=== PATIENT | male | born 1965 ===

== ENCOUNTER 2018-06-13 19:21 | Inpatient (IN) ==
[2018-06-13] MEDS ORDERED: ONDANSETRON 4 MG/2 ML VIAL IV PRN (22:16)
[2018-06-13] MEDS ORDERED: DEXTROSE 50% 25 GM/50 ML VIAL IV PRN (22:16)
[2018-06-13] MEDS ORDERED: GLUCAGON 1 MG VIAL IM PRN (22:16)
[2018-06-13] MEDS ORDERED: MORPHINE 4 MG/1 ML VIAL IV PRN (22:16)
[2018-06-13] MEDS ORDERED: ACETAMINOPHEN 325 MG TABLET PO PRN (22:16)
[2018-06-13] MEDS ORDERED: LORazepam 2 MG/1 ML VIAL IV PRN (22:32)
[2018-06-13] MEDS ORDERED: hydrALAZINE 20 MG/1 ML VIAL IV PRN (22:51)
[2018-06-13] MEDS ORDERED: THIAMINE INJ 100 MG, FOLIC ACID INJ 1 MG, MULTIVITAMIN INJ 10 ML in SODIUM CHLORIDE 0.9... IV ONE (23:00)
[2018-06-13] MEDS: CEFTAROLINE 600 MG in SODIUM CHLORIDE 0.9% 100 ML IV SCH (23:27)
[2018-06-14] MEDS: INSULIN REGULAR 100 UNIT/ML SUBCUT SCH ×5 (00:39→23:41)
[2018-06-14 07:22] LABS: Basophils % 0.5 % (0.0-0.8); Eosinophils # 0.1 10*3/uL (0.0-0.87); Eosinophils % 1.6 % (0.00-10.9); Hematocrit 33.7 VOL% (42.0-52.0); Hemoglobin 11.9 GM/DL (14.0-18.0); Immature Granulocytes % 0.5 %; Immature Granulocytes Absolute 0.04 #; Lymphocytes % 13.8 % (21.2-54.2); Mean Corpuscular HGB Conc 35.3 GM/DL (32-36); Mean Corpuscular Hemoglobin 31 PG (27-34); Mean Corpuscular Volume 86.9 FL (87-102); Mean Platelet Volume 9.3 FL (9.6-12.0); Monocytes # 1.3 10*3/uL (0.11-0.8); Monocytes % 17.1 % (1.7-12.7); Neutrophils # 4.9 10*3/uL (1.4-7.4); Neutrophils % 66.5 % (38.7-73.9); Platelet Count 215 T/CUMM (130-400); Red Blood Count 3.88 MC/CUMM (3.8-5.5); Red Cell Distribution Width 12.5 % (9.3-17.3); White Blood Count 7.4 T/CUMM (4-12)
[2018-06-14 07:29] LABS: PT Patient Result 10.5 SECS; Partial Thromboplastin Time 30.1 SECS (0-40)
[2018-06-14 07:45] LABS: Band Neutrophils 3 % (0-10); Eosinophils 2 % (0-10); Lymphocytes 13 % (20-55); Platelet Estimate Normal; Segmented Neutrophils 72 % (50-85); Total Cells Counted 100
[2018-06-14 07:54] LABS: Albumin 2.5 G/DL (3.4-5.0); Bilirubin,Total 0.7 MG/DL (0.2-1.0); Calcium 8.9 MG/DL (8.5-10.1); Osmolality,Calculated 281.4 MOS/KG (273-304); Potassium 3.5 MMOL/L (3.5-5.1); Total Protein 7.7 G/DL (6.4-8.3)
[2018-06-14] MEDS ORDERED: LIDOCAINE 1% 20 ML VIAL ONE (10:11)
[2018-06-14] MEDS: LACTATED RINGERS 1,000 ML IV SCH (10:40)
[2018-06-14] MEDS: CEFTAROLINE 600 MG in SODIUM CHLORIDE 0.9% 100 ML IV SCH ×2 (11:55→23:28)
[2018-06-14] MEDS: SODIUM CHLORIDE 0.9% 1,000 ML IV SCH (11:55)
[2018-06-14] MEDS ORDERED: ONDANSETRON 4 MG/2 ML VIAL ONE (13:00)
[2018-06-14] MEDS ORDERED: MIDAZOLAM 2 MG/2 ML VIAL ONE (13:00)
[2018-06-14] MEDS ORDERED: fentaNYL 100 MCG/2 ML VIAL ONE (13:00)
[2018-06-14] MEDS ORDERED: PROPOFOL 200 MG/20 ML VIAL IV ONE (13:01)
[2018-06-15] MEDS: SODIUM CHLORIDE 0.9% 1,000 ML IV SCH ×2 (02:54→19:00)
[2018-06-15] MEDS: INSULIN REGULAR 100 UNIT/ML SUBCUT SCH ×4 (06:31→23:55)
[2018-06-15 06:37] LABS: Basophils # 0.1 10*3/uL (0.0-0.2); Basophils % 0.7 % (0.0-0.8); Eosinophils # 0.2 10*3/uL (0.0-0.87); Eosinophils % 2.7 % (0.00-10.9); Hematocrit 32.9 VOL% (42.0-52.0); Hemoglobin 11.7 GM/DL (14.0-18.0); Immature Granulocytes % 0.5 %; Immature Granulocytes Absolute 0.04 #; Lymphocytes # 1.5 10*3/uL (1.4-4.0); Lymphocytes % 19.6 % (21.2-54.2); Mean Corpuscular HGB Conc 35.6 GM/DL (32-36); Mean Corpuscular Hemoglobin 32 PG (27-34); Mean Corpuscular Volume 88.4 FL (87-102); Mean Platelet Volume 9.3 FL (9.6-12.0); Monocytes # 1.2 10*3/uL (0.11-0.8); Monocytes % 15.6 % (1.7-12.7); Neutrophils # 4.7 10*3/uL (1.4-7.4); Neutrophils % 60.9 % (38.7-73.9); Platelet Count 211 T/CUMM (130-400); Red Blood Count 3.72 MC/CUMM (3.8-5.5); Red Cell Distribution Width 12.3 % (9.3-17.3); White Blood Count 7.7 T/CUMM (4-12)
[2018-06-15 06:58] LABS: Band Neutrophils 1 % (0-10); Eosinophils 2 % (0-10); Hypochromasia Slight; Lymphocytes 16 % (20-55); Segmented Neutrophils 70 % (50-85); Total Cells Counted 100
[2018-06-15 06:59] LABS: Microcytosis Slight; Platelet Estimate Normal
[2018-06-15 07:11] LABS: Calcium 8.5 MG/DL (8.5-10.1); Osmolality,Calculated 276.5 MOS/KG (273-304); Potassium 3.6 MMOL/L (3.5-5.1)
[2018-06-15] MEDS: CEFTAROLINE 600 MG in SODIUM CHLORIDE 0.9% 100 ML IV SCH ×2 (11:48→23:51)
[2018-06-15] MEDS: LISINOPRIL 5 MG TABLET PO SCH (12:06)
[2018-06-15] MEDS: LACTATED RINGERS 1,000 ML IV SCH (12:09)
[2018-06-16] MEDS: INSULIN REGULAR 100 UNIT/ML SUBCUT SCH ×3 (05:56→18:20)
[2018-06-16 06:31] LABS: Basophils % 0.6 % (0.0-0.8); Eosinophils # 0.2 10*3/uL (0.0-0.87); Eosinophils % 3.6 % (0.00-10.9); Immature Granulocytes % 0.6 %; Immature Granulocytes Absolute 0.04 #; Lymphocytes # 1.4 10*3/uL (1.4-4.0); Lymphocytes % 21.5 % (21.2-54.2); Mean Corpuscular HGB Conc 35.3 GM/DL (32-36); Mean Corpuscular Hemoglobin 31 PG (27-34); Mean Corpuscular Volume 87.9 FL (87-102); Monocytes # 0.9 10*3/uL (0.11-0.8); Monocytes % 13.5 % (1.7-12.7); Neutrophils # 3.8 10*3/uL (1.4-7.4); Neutrophils % 60.2 % (38.7-73.9); Platelet Count 244 T/CUMM (130-400); Red Blood Count 3.87 MC/CUMM (3.8-5.5); Red Cell Distribution Width 12.3 % (9.3-17.3); White Blood Count 6.4 T/CUMM (4-12)
[2018-06-16 06:44] LABS: Osmolality,Calculated 278.5 MOS/KG (273-304); Potassium 3.6 MMOL/L (3.5-5.1)
[2018-06-16] MEDS ORDERED: SIMVASTATIN 20 MG TABLET PO SCH (09:00)
[2018-06-16] MEDS ORDERED: ASPIRIN EC 81 MG TABLET PO SCH (09:00)
[2018-06-16] MEDS: LISINOPRIL 5 MG TABLET PO SCH (09:14)
[2018-06-16] MEDS: SODIUM CHLORIDE 0.9% 1,000 ML IV SCH (09:14)
[2018-06-16] MEDS: CEFTAROLINE 600 MG in SODIUM CHLORIDE 0.9% 100 ML IV SCH (14:08)
[2018-06-16 20:25] VITALS: BP 173/83
== END 2018-06-16 20:40 | disposition home or self-care (01) | DRG 623 ==
LOC: SUATTDRO 21:10 → N.5E 21:10
PROVIDERS: ADMIT Internal Medicine; ATTEND Internal Medicine

== ENCOUNTER 2018-07-18 15:41 | Inpatient (IN) ==
[2018-07-18] MEDS ORDERED: GLUCAGON 1 MG VIAL IM PRN (19:48)
[2018-07-18] MEDS ORDERED: DEXTROSE 50% 25 GM/50 ML VIAL IV PRN (19:48)
[2018-07-18] MEDS ORDERED: ONDANSETRON 4 MG/2 ML VIAL IV PRN (19:48)
[2018-07-18 20:33] LABS: Basophils % 0.3 % (0.0-0.8); Eosinophils # 0.1 10*3/uL (0.0-0.87); Eosinophils % 0.5 % (0.00-10.9); Hematocrit 31.3 VOL% (42.0-52.0); Hemoglobin 11.4 GM/DL (14.0-18.0); Immature Granulocytes % 0.8 %; Immature Granulocytes Absolute 0.09 #; Lymphocytes # 1.1 10*3/uL (1.4-4.0); Mean Corpuscular HGB Conc 36.4 GM/DL (32-36); Mean Corpuscular Hemoglobin 31 PG (27-34); Mean Corpuscular Volume 84.6 FL (87-102); Mean Platelet Volume 8.5 FL (9.6-12.0); Monocytes # 1.2 10*3/uL (0.11-0.8); Monocytes % 10.4 % (1.7-12.7); Neutrophils # 8.7 10*3/uL (1.4-7.4); Platelet Count 251 T/CUMM (130-400); Red Cell Distribution Width 12.3 % (9.3-17.3); White Blood Count 11.1 T/CUMM (4-12)
[2018-07-18 20:52] LABS: Calcium 8.4 MG/DL (8.5-10.1); Osmolality,Calculated 265.9 MOS/KG (273-304); Potassium 4.3 MMOL/L (3.5-5.1)
[2018-07-18] MEDS: SODIUM CHLORIDE 0.9% 1,000 ML IV SCH (21:32)
[2018-07-18] MEDS: INSULIN LISPRO 100 UNIT/ML SUBCUT SCH (21:34)
[2018-07-18] MEDS: ENOXAPARIN 40 MG/0.4 ML SYRINGE SUBCUT SCH (21:34)
[2018-07-19 01:42] LABS: Calcium 8.1 MG/DL (8.5-10.1)
[2018-07-19 01:43] LABS: Osmolality,Calculated 268.1 MOS/KG (273-304); Potassium 4.1 MMOL/L (3.5-5.1)
[2018-07-19 02:17] LABS: Apearance,Urine Slightly Hazy (Clear); Bacteria,Urine Occasional /HPF (Few); Bilirubin,Urine Negative (Negative); Blood, Urine Moderate mg/dL (Negative); Glucose,Urine (UA) >=500 mg/dL (Negative); Granular Casts,Urine 15 /LPF (0-1); Hyaline Casts,Urine 5 /LPF (0-3); Ketones,Urine 5 mg/dL (Negative); Mucus,Urine Occasional /LPF (Occasional); Nitrite,Urine Negative (Negative); Protein,Urine >=500 MG/DL; RBC,Urine 3 /HPF (0-4); Squamous Epithelial Cell,Urine Occasional /HPF (0-10); Urine Color Yellow (Yellow); Urine Specific Gravity 1.009 (1.001-1.035)
[2018-07-19] MEDS: SODIUM CHLORIDE 0.9% 1,000 ML IV SCH ×2 (05:18→16:36)
[2018-07-19] MEDS: INSULIN LISPRO 100 UNIT/ML SUBCUT SCH ×4 (08:16→21:07)
[2018-07-19] MEDS ORDERED: LIDOCAINE 1% 20 ML VIAL ONE (08:45)
[2018-07-19] MEDS ORDERED: SEVOFLURANE 1 UNIT/15 MINUTE INH ONE (10:14)
[2018-07-19] MEDS ORDERED: PROPOFOL 200 MG/20 ML VIAL IV ONE (10:14)
[2018-07-19] MEDS ORDERED: MIDAZOLAM 2 MG/2 ML VIAL ONE (10:14)
[2018-07-19] MEDS ORDERED: fentaNYL 100 MCG/2 ML VIAL ONE (10:15)
[2018-07-19] MEDS ORDERED: PHENYLEPHRINE 1 MG/10 ML SYRINGE IV ONE (10:15)
[2018-07-19] MEDS: LACTATED RINGERS 1,000 ML IV SCH (11:12)
[2018-07-19] MEDS: ACETAMINOPHEN 325 MG TABLET PO PRN ×2 (12:52→18:26)
[2018-07-19] MEDS: AMPICILLIN/SULBACTAM 3,000 MG in SODIUM CHLORIDE 0.9% 100 ML IV SCH ×2 (15:06→21:59)
[2018-07-19] MEDS: VANCOMYCIN INJ 1,000 MG in SODIUM CHLORIDE 0.9% 250 ML IV SCH (20:40)
[2018-07-19] MEDS: ENOXAPARIN 40 MG/0.4 ML SYRINGE SUBCUT SCH (20:41)
[2018-07-20] MEDS: SODIUM CHLORIDE 0.9% 1,000 ML IV SCH (02:30)
[2018-07-20] MEDS: AMPICILLIN/SULBACTAM 3,000 MG in SODIUM CHLORIDE 0.9% 100 ML IV SCH ×4 (02:42→21:12)
[2018-07-20 06:24] LABS: Calcium 7.7 MG/DL (8.5-10.1); Potassium 3.4 MMOL/L (3.5-5.1)
[2018-07-20] MEDS: INSULIN LISPRO 100 UNIT/ML SUBCUT SCH ×4 (08:06→21:11)
[2018-07-20] MEDS: VANCOMYCIN INJ 1,000 MG in SODIUM CHLORIDE 0.9% 250 ML IV SCH ×2 (08:07→19:41)
[2018-07-20] MEDS: ATORVASTATIN 20 MG TABLET PO SCH (08:55)
[2018-07-20] MEDS: POTASSIUM CHLORIDE 20 MEQ TABLET PO PRN ×3 (08:55→14:12)
[2018-07-20] MEDS: amLODIPine 5 MG TABLET PO SCH (08:55)
[2018-07-20] MEDS ORDERED: chlordiazePOXIDE 10 MG CAPSULE PO PRN (11:58)
[2018-07-20] MEDS: THIAMINE INJ 100 MG, FOLIC ACID INJ 1 MG, MULTIVITAMIN INJ 10 ML in SODIUM CHLORIDE 0.9... IV SCH (13:00)
[2018-07-20] MEDS: LACTATED RINGERS 1,000 ML IV SCH (15:00)
[2018-07-20] MEDS: ENOXAPARIN 40 MG/0.4 ML SYRINGE SUBCUT SCH (21:12)
[2018-07-20] MEDS: ACETAMINOPHEN 325 MG TABLET PO PRN (23:05)
[2018-07-21] MEDS: SODIUM CHLORIDE 0.9% 1,000 ML IV SCH ×6 (01:11→23:26)
[2018-07-21] MEDS: AMPICILLIN/SULBACTAM 3,000 MG in SODIUM CHLORIDE 0.9% 100 ML IV SCH ×4 (03:06→21:16)
[2018-07-21 04:41] LABS: Basophils % 0.2 % (0.0-0.8); Eosinophils # 0.2 10*3/uL (0.0-0.87); Eosinophils % 2.7 % (0.00-10.9); Hematocrit 28.4 VOL% (42.0-52.0); Immature Granulocytes % 1.1 %; Immature Granulocytes Absolute 0.09 #; Lymphocytes # 1.6 10*3/uL (1.4-4.0); Lymphocytes % 19.2 % (21.2-54.2); Mean Corpuscular HGB Conc 35.2 GM/DL (32-36); Mean Corpuscular Hemoglobin 30 PG (27-34); Mean Corpuscular Volume 85.5 FL (87-102); Mean Platelet Volume 8.5 FL (9.6-12.0); Monocytes # 1.2 10*3/uL (0.11-0.8); Monocytes % 13.7 % (1.7-12.7); Neutrophils # 5.3 10*3/uL (1.4-7.4); Neutrophils % 63.1 % (38.7-73.9); Platelet Count 233 T/CUMM (130-400); Red Blood Count 3.32 MC/CUMM (3.8-5.5); Red Cell Distribution Width 12.3 % (9.3-17.3); White Blood Count 8.4 T/CUMM (4-12)
[2018-07-21 05:11] LABS: Calcium 8.3 MG/DL (8.5-10.1); Osmolality,Calculated 270.8 MOS/KG (273-304); Potassium 3.5 MMOL/L (3.5-5.1)
[2018-07-21 05:14] LABS: Risk Ratio 3.32
[2018-07-21] MEDS: VANCOMYCIN INJ 1,000 MG in SODIUM CHLORIDE 0.9% 250 ML IV SCH ×3 (08:26→20:12)
[2018-07-21] MEDS: amLODIPine 5 MG TABLET PO SCH (08:26)
[2018-07-21] MEDS: ATORVASTATIN 20 MG TABLET PO SCH (08:26)
[2018-07-21] MEDS: INSULIN LISPRO 100 UNIT/ML SUBCUT SCH ×4 (08:27→21:15)
[2018-07-21] MEDS: LACTATED RINGERS 1,000 ML IV SCH (09:02)
[2018-07-21] MEDS: THIAMINE INJ 100 MG, FOLIC ACID INJ 1 MG, MULTIVITAMIN INJ 10 ML in SODIUM CHLORIDE 0.9... IV SCH (11:15)
[2018-07-21] MEDS: LACTOBACILLUS ACIDOPHILUS/BULGARICUS CAPLET PO SCH (21:15)
[2018-07-21] MEDS: ENOXAPARIN 40 MG/0.4 ML SYRINGE SUBCUT SCH (21:15)
[2018-07-21] MEDS: ACETAMINOPHEN 325 MG TABLET PO PRN (23:26)
[2018-07-22] MEDS: AMPICILLIN/SULBACTAM 3,000 MG in SODIUM CHLORIDE 0.9% 100 ML IV SCH ×2 (03:29→08:50)
[2018-07-22] MEDS: VANCOMYCIN INJ 1,000 MG in SODIUM CHLORIDE 0.9% 250 ML IV SCH ×2 (04:43→12:32)
[2018-07-22] MEDS: amLODIPine 10 MG TABLET PO SCH (08:49)
[2018-07-22] MEDS: SODIUM CHLORIDE 0.9% 1,000 ML IV SCH ×3 (08:51→19:24)
[2018-07-22] MEDS: INSULIN LISPRO 100 UNIT/ML SUBCUT SCH ×4 (08:52→21:28)
[2018-07-22] MEDS: LACTATED RINGERS 1,000 ML IV SCH (09:20)
[2018-07-22] MEDS: LACTOBACILLUS ACIDOPHILUS/BULGARICUS CAPLET PO SCH ×2 (09:33→21:28)
[2018-07-22] MEDS: MULTIVITAMIN (CENTRUM) TABLET PO SCH (12:31)
[2018-07-22] MEDS: THIAMINE 100 MG TABLET PO SCH (12:31)
[2018-07-22] MEDS: FOLIC ACID 1 MG TABLET PO SCH (12:31)
[2018-07-22] MEDS: AMOXICILLIN/CLAV 875 MG TABLET PO SCH (15:15)
[2018-07-22] MEDS: ENOXAPARIN 40 MG/0.4 ML SYRINGE SUBCUT SCH (21:29)
[2018-07-23] MEDS: AMOXICILLIN/CLAV 875 MG TABLET PO SCH (02:57)
[2018-07-23] MEDS: SODIUM CHLORIDE 0.9% 1,000 ML IV SCH (03:59)
[2018-07-23] MEDS: LACTOBACILLUS ACIDOPHILUS/BULGARICUS CAPLET PO SCH (08:10)
[2018-07-23] MEDS: THIAMINE 100 MG TABLET PO SCH (08:11)
[2018-07-23] MEDS: FOLIC ACID 1 MG TABLET PO SCH (08:11)
[2018-07-23] MEDS: amLODIPine 10 MG TABLET PO SCH (08:11)
[2018-07-23] MEDS: MULTIVITAMIN (CENTRUM) TABLET PO SCH (08:11)
[2018-07-23] MEDS: INSULIN LISPRO 100 UNIT/ML SUBCUT SCH ×2 (08:12→12:53)
[2018-07-23] MEDS: LACTATED RINGERS 1,000 ML IV SCH (09:18)
[2018-07-23 11:45] VITALS: BP 141/78
[2018-07-23] MEDS ORDERED: LISINOPRIL 10 MG TABLET PO SCH (12:00)
== END 2018-07-23 13:13 | disposition home or self-care (01) | DRG 240 ==
LOC: N.3E 18:05 → SUATTDRO 18:05
PROVIDERS: ADMIT Internal Medicine; ATTEND Hospitalist

== ENCOUNTER 2018-09-13 12:22 | Inpatient (IN) ==
[2018-09-13] MEDS ORDERED: ONDANSETRON 4 MG/2 ML VIAL IV STA (13:33)
[2018-09-13] MEDS ORDERED: VANCOMYCIN INJ 1,000 MG in SODIUM CHLORIDE 0.9% 250 ML IV STA (13:33)
[2018-09-13] MEDS ORDERED: SODIUM CHLORIDE 0.9% 1,000 ML IV STA (13:39)
[2018-09-13 14:39] LABS: Basophils % 0.4 % (0.0-0.8); Eosinophils # 0.1 10*3/uL (0.0-0.87); Hematocrit 44.9 VOL% (42.0-52.0); Hemoglobin 15.3 GM/DL (14.0-18.0); Immature Granulocytes % 0.5 %; Immature Granulocytes Absolute 0.03 #; Lymphocytes # 1.1 10*3/uL (1.4-4.0); Lymphocytes % 20.3 % (21.2-54.2); Mean Corpuscular HGB Conc 34.1 GM/DL (32-36); Mean Corpuscular Hemoglobin 29 PG (27-34); Mean Corpuscular Volume 85.4 FL (87-102); Mean Platelet Volume 9.2 FL (9.6-12.0); Monocytes # 0.7 10*3/uL (0.11-0.8); Neutrophils # 3.6 10*3/uL (1.4-7.4); Neutrophils % 64.8 % (38.7-73.9); Platelet Count 173 T/CUMM (130-400); Red Blood Count 5.26 MC/CUMM (3.8-5.5); Red Cell Distribution Width 13.7 % (9.3-17.3); White Blood Count 5.6 T/CUMM (4-12)
[2018-09-13 14:47] LABS: Partial Thromboplastin Time 28.4 SECS (0-40)
[2018-09-13 14:52] LABS: Lactic Acid 1.3 MMOL/L (0.4-2.0)
[2018-09-13 14:55] LABS: Alanine Aminotransferase 18 U/L (16-61); Albumin 2.8 G/DL (3.4-5.0); Alkaline Phosphatase 97 U/L (45-117); Aspartate Amino Transferase 16 U/L (0-37); Blood Urea Nitrogen 25 MG/DL (7-18); Calcium 8.7 MG/DL (8.5-10.1); Glucose 188 MG/DL (74-106); Potassium 3.8 MMOL/L (3.5-5.1); Sodium 136 MMOL/L (136-145); Total Protein 8.4 G/DL (6.4-8.3); Troponin I < 0.015 NG/ML (0.00-0.045)
[2018-09-13] MEDS ORDERED: GLUCAGON 1 MG VIAL IM PRN (15:18)
[2018-09-13] MEDS ORDERED: DEXTROSE 50% 25 GM/50 ML VIAL IV PRN (15:18)
[2018-09-13] MEDS ORDERED: ONDANSETRON 4 MG/2 ML VIAL IV PRN (15:18)
[2018-09-13 16:30] LABS: Sedimentation Rate-Westergren 53 MM/HR (0-20)
[2018-09-13] MEDS ORDERED: VANCOMYCIN INJ 750 MG in SODIUM CHLORIDE 0.9% 250 ML IV ONE (17:00)
[2018-09-13] MEDS: INSULIN REGULAR 100 UNIT/ML SUBCUT SCH ×2 (17:43→21:03)
[2018-09-13] MEDS: glyBURIDE 5 MG TABLET PO SCH (17:45)
[2018-09-13] MEDS: PIPERACILLIN/TAZOBACTAM 3,375 MG in SODIUM CHLORIDE 0.9% 100 ML IV SCH ×2 (17:47→23:13)
[2018-09-13] MEDS: ENOXAPARIN 40 MG/0.4 ML SYRINGE SUBCUT SCH (19:37)
[2018-09-14 05:49] LABS: Basophils % 0.4 % (0.0-0.8); Eosinophils # 0.4 10*3/uL (0.0-0.87); Eosinophils % 4.4 % (0.00-10.9); Hematocrit 24.8 VOL% (42.0-52.0); Hemoglobin 8.1 GM/DL (14.0-18.0); Immature Granulocytes % 0.5 %; Immature Granulocytes Absolute 0.05 #; Lymphocytes # 2.2 10*3/uL (1.4-4.0); Lymphocytes % 23.1 % (21.2-54.2); Mean Corpuscular HGB Conc 32.7 GM/DL (32-36); Mean Corpuscular Hemoglobin 28 PG (27-34); Mean Corpuscular Volume 86.7 FL (87-102); Mean Platelet Volume 9.3 FL (9.6-12.0); Monocytes # 1.4 10*3/uL (0.11-0.8); Monocytes % 14.2 % (1.7-12.7); Neutrophils # 5.4 10*3/uL (1.4-7.4); Neutrophils % 57.4 % (38.7-73.9); Platelet Count 285 T/CUMM (130-400); Red Blood Count 2.86 MC/CUMM (3.8-5.5); Red Cell Distribution Width 13.4 % (9.3-17.3); White Blood Count 9.5 T/CUMM (4-12)
[2018-09-14 06:15] LABS: Calcium 8.5 MG/DL (8.5-10.1); Osmolality,Calculated 276.5 MOS/KG (273-304)
[2018-09-14] MEDS: INSULIN REGULAR 100 UNIT/ML SUBCUT SCH ×4 (08:24→22:43)
[2018-09-14] MEDS: glyBURIDE 5 MG TABLET PO SCH ×2 (08:24→16:00)
[2018-09-14] MEDS: VANCOMYCIN INJ 1,000 MG in SODIUM CHLORIDE 0.9% 250 ML IV SCH ×2 (08:29→20:57)
[2018-09-14] MEDS: PIPERACILLIN/TAZOBACTAM 3,375 MG in SODIUM CHLORIDE 0.9% 100 ML IV SCH ×2 (09:40→17:08)
[2018-09-14] MEDS ORDERED: SEVOFLURANE 1 UNIT/15 MINUTE INH ONE (11:24)
[2018-09-14] MEDS ORDERED: fentaNYL 100 MCG/2 ML VIAL ONE (11:24)
[2018-09-14] MEDS ORDERED: MIDAZOLAM 2 MG/2 ML VIAL ONE (11:24)
[2018-09-14] MEDS ORDERED: PROPOFOL 200 MG/20 ML VIAL IV ONE (11:24)
[2018-09-14 13:26] LABS: Hemoglobin 7.5 GM/DL (14.0-18.0)
[2018-09-14] MEDS: FERROUS SULFATE ER 140 MG TABLET PO SCH ×2 (15:57→22:42)
[2018-09-14] MEDS: ENOXAPARIN 40 MG/0.4 ML SYRINGE SUBCUT SCH (17:08)
[2018-09-14] MEDS: ACETAMINOPHEN 500 MG TABLET PO PRN (20:18)
[2018-09-15] MEDS: PIPERACILLIN/TAZOBACTAM 3,375 MG in SODIUM CHLORIDE 0.9% 100 ML IV SCH ×3 (02:23→19:55)
[2018-09-15 05:46] LABS: Basophils % 0.4 % (0.0-0.8); Eosinophils # 0.4 10*3/uL (0.0-0.87); Eosinophils % 5.2 % (0.00-10.9); Hematocrit 23.8 VOL% (42.0-52.0); Hemoglobin 7.8 GM/DL (14.0-18.0); Immature Granulocytes % 0.5 %; Immature Granulocytes Absolute 0.04 #; Lymphocytes # 1.8 10*3/uL (1.4-4.0); Mean Corpuscular HGB Conc 32.8 GM/DL (32-36); Mean Corpuscular Hemoglobin 28 PG (27-34); Mean Corpuscular Volume 86.2 FL (87-102); Mean Platelet Volume 9.1 FL (9.6-12.0); Monocytes # 1.3 10*3/uL (0.11-0.8); Monocytes % 15.6 % (1.7-12.7); Neutrophils # 4.6 10*3/uL (1.4-7.4); Neutrophils % 56.3 % (38.7-73.9); Platelet Count 286 T/CUMM (130-400); Red Blood Count 2.76 MC/CUMM (3.8-5.5); Red Cell Distribution Width 13.2 % (9.3-17.3); White Blood Count 8.2 T/CUMM (4-12)
[2018-09-15 06:07] LABS: Eosinophils 7 % (0-10); Lymphocytes 17 % (20-55); Platelet Estimate Adequate; Segmented Neutrophils 60 % (50-85); Total Cells Counted 100
[2018-09-15 06:08] LABS: Hypochromasia 1+
[2018-09-15 06:09] LABS: Calcium 8.6 MG/DL (8.5-10.1); Osmolality,Calculated 272.8 MOS/KG (273-304); Potassium 3.9 MMOL/L (3.5-5.1)
[2018-09-15] MEDS: INSULIN REGULAR 100 UNIT/ML SUBCUT SCH ×4 (09:48→20:59)
[2018-09-15] MEDS: amLODIPine 10 MG TABLET PO SCH (09:51)
[2018-09-15] MEDS: FERROUS SULFATE ER 140 MG TABLET PO SCH ×3 (09:51→20:59)
[2018-09-15] MEDS: glyBURIDE 5 MG TABLET PO SCH ×2 (09:51→17:44)
[2018-09-15] MEDS: ASPIRIN EC 81 MG TABLET PO SCH (09:51)
[2018-09-15] MEDS: VANCOMYCIN INJ 1,000 MG in SODIUM CHLORIDE 0.9% 250 ML IV SCH ×2 (10:02→22:13)
[2018-09-15] MEDS: SODIUM HYPOCHLORITE 0.25% IRRIG 473 ML BOTTLE TOP SCH (13:14)
[2018-09-15] MEDS ORDERED: MAGNESIUM SULF RIDER 4 GM in PREMIX 1 EACH IV ONE (14:33)
[2018-09-15] MEDS: ENOXAPARIN 40 MG/0.4 ML SYRINGE SUBCUT SCH (17:34)
[2018-09-16] MEDS: PIPERACILLIN/TAZOBACTAM 3,375 MG in SODIUM CHLORIDE 0.9% 100 ML IV SCH ×3 (01:56→17:41)
[2018-09-16] MEDS: ACETAMINOPHEN 500 MG TABLET PO PRN ×2 (04:09→20:12)
[2018-09-16] MEDS: VANCOMYCIN INJ 1,000 MG in SODIUM CHLORIDE 0.9% 250 ML IV SCH ×4 (05:57→22:53)
[2018-09-16] MEDS: INSULIN REGULAR 100 UNIT/ML SUBCUT SCH ×4 (08:07→20:11)
[2018-09-16] MEDS: glyBURIDE 5 MG TABLET PO SCH ×2 (08:07→16:51)
[2018-09-16] MEDS: amLODIPine 10 MG TABLET PO SCH (09:11)
[2018-09-16] MEDS: FERROUS SULFATE ER 140 MG TABLET PO SCH ×3 (09:11→20:11)
[2018-09-16] MEDS: ASPIRIN EC 81 MG TABLET PO SCH (09:11)
[2018-09-16] MEDS: SODIUM HYPOCHLORITE 0.25% IRRIG 473 ML BOTTLE TOP SCH (09:12)
[2018-09-16] MEDS: ENOXAPARIN 40 MG/0.4 ML SYRINGE SUBCUT SCH (17:40)
[2018-09-17] MEDS: PIPERACILLIN/TAZOBACTAM 3,375 MG in SODIUM CHLORIDE 0.9% 100 ML IV SCH (01:09)
[2018-09-17] MEDS: VANCOMYCIN INJ 1,000 MG in SODIUM CHLORIDE 0.9% 250 ML IV SCH (06:12)
[2018-09-17] MEDS ORDERED: LEVOFLOXACIN INJ 750 MG in PREMIX 1 EACH IV SCH (06:30)
[2018-09-17] MEDS: INSULIN REGULAR 100 UNIT/ML SUBCUT SCH ×4 (08:16→20:31)
[2018-09-17] MEDS: FERROUS SULFATE ER 140 MG TABLET PO SCH ×4 (08:17→20:32)
[2018-09-17] MEDS: amLODIPine 10 MG TABLET PO SCH (08:17)
[2018-09-17] MEDS: ASPIRIN EC 81 MG TABLET PO SCH (08:17)
[2018-09-17] MEDS: glyBURIDE 5 MG TABLET PO SCH ×2 (08:17→17:11)
[2018-09-17] MEDS: SODIUM HYPOCHLORITE 0.25% IRRIG 473 ML BOTTLE TOP SCH (08:18)
[2018-09-17] MEDS: MEROPENEM 1,000 MG in SODIUM CHLORIDE 0.9% 100 ML IV SCH ×2 (09:17→17:11)
[2018-09-17] MEDS: LINEZOLID 600 MG TABLET PO SCH ×2 (13:19→20:33)
[2018-09-17] MEDS: GENTAMICIN INJ 400 MG in SODIUM CHLORIDE 0.9% 100 ML IV SCH (13:19)
[2018-09-17] MEDS: ENOXAPARIN 40 MG/0.4 ML SYRINGE SUBCUT SCH (20:32)
[2018-09-18] MEDS: MEROPENEM 1,000 MG in SODIUM CHLORIDE 0.9% 100 ML IV SCH ×2 (01:42→09:59)
[2018-09-18 06:14] LABS: Basophils % 0.4 % (0.0-0.8); Eosinophils # 0.5 10*3/uL (0.0-0.87); Eosinophils % 5.9 % (0.00-10.9); Hematocrit 23.3 VOL% (42.0-52.0); Hemoglobin 7.8 GM/DL (14.0-18.0); Immature Granulocytes % 0.6 %; Immature Granulocytes Absolute 0.05 #; Lymphocytes # 2.1 10*3/uL (1.4-4.0); Lymphocytes % 23.8 % (21.2-54.2); Mean Corpuscular HGB Conc 33.5 GM/DL (32-36); Mean Corpuscular Hemoglobin 29 PG (27-34); Mean Platelet Volume 8.8 FL (9.6-12.0); Monocytes % 11.4 % (1.7-12.7); Neutrophils # 5.2 10*3/uL (1.4-7.4); Neutrophils % 57.9 % (38.7-73.9); Platelet Count 371 T/CUMM (130-400); Red Blood Count 2.74 MC/CUMM (3.8-5.5); Red Cell Distribution Width 13.1 % (9.3-17.3)
[2018-09-18 06:37] LABS: Osmolality,Calculated 275.5 MOS/KG (273-304); Potassium 3.8 MMOL/L (3.5-5.1)
[2018-09-18] MEDS ORDERED: LEVOFLOXACIN INJ 500 MG in PREMIX 1 EACH IV SCH (08:00)
[2018-09-18] MEDS ORDERED: MAGNESIUM SULF RIDER 2 GM in PREMIX 1 EACH IV PRN (08:18)
[2018-09-18] MEDS ORDERED: MAGNESIUM SULF RIDER 4 GM in PREMIX 1 EACH IV PRN (08:18)
[2018-09-18] MEDS: glyBURIDE 5 MG TABLET PO SCH (08:56)
[2018-09-18] MEDS: amLODIPine 10 MG TABLET PO SCH (09:45)
[2018-09-18] MEDS: ASPIRIN EC 81 MG TABLET PO SCH (09:45)
[2018-09-18] MEDS: FERROUS SULFATE ER 140 MG TABLET PO SCH ×2 (09:45→15:22)
[2018-09-18] MEDS: LINEZOLID 600 MG TABLET PO SCH (09:45)
[2018-09-18] MEDS: SODIUM HYPOCHLORITE 0.25% IRRIG 473 ML BOTTLE TOP SCH (10:39)
[2018-09-18 11:23] VITALS: BP 134/75
[2018-09-18] MEDS: INSULIN REGULAR 100 UNIT/ML SUBCUT SCH ×2 (11:51→12:00)
[2018-09-18] MEDS: GENTAMICIN INJ 400 MG in SODIUM CHLORIDE 0.9% 100 ML IV SCH (12:40)
== END 2018-09-18 15:30 | DRG 240 ==
LOC: N.ED 12:22 → N.EDINP 15:16 → N.3E 15:43
PROVIDERS: ADMIT Surgery; ATTEND Surgery

== ENCOUNTER 2019-02-07 16:44 | Inpatient (IN) ==
[2019-02-07] MEDS ORDERED: CEFTAROLINE 600 MG in SODIUM CHLORIDE 0.9% 100 ML IV STA (17:36)
[2019-02-07 18:11] LABS: Alanine Aminotransferase 14 U/L (16-61); Albumin 2.3 G/DL (3.4-5.0); Alkaline Phosphatase 144 U/L (45-117); Aspartate Amino Transferase 10 U/L (0-37); Bilirubin,Direct < 0.100 MG/DL (0.0-0.20); Bilirubin,Indirect 0.3 MG/DL (0.0-1.0); Bilirubin,Total < 0.39 MG/DL (0.2-1.0); Total Protein 8.2 G/DL (6.4-8.3)
[2019-02-07] MEDS ORDERED: DEXTROSE 50% 25 GM/50 ML VIAL IV PRN (18:41)
[2019-02-07] MEDS ORDERED: GLUCAGON 1 MG VIAL IM PRN ×2 (18:41)
[2019-02-07] MEDS ORDERED: DEXTROSE 50% 25 GM/50 ML SYRINGE IV PRN (18:41)
[2019-02-07] MEDS ORDERED: INSULIN GLARGINE 100 UNIT/ML SUBCUT SCH (19:00)
[2019-02-07] MEDS ORDERED: INSULIN LISPRO 100 UNIT/ML SUBCUT SCH (21:00)
[2019-02-07 21:24] LABS: Calcium 8.9 MG/DL (8.5-10.1); Osmolality,Calculated 281.7 MOS/KG (273-304); Potassium 3.8 MMOL/L (3.5-5.1)
[2019-02-07] MEDS: INSULIN LISPRO 100 UNIT/ML SUBCUT SCH (22:04)
[2019-02-07] MEDS: ENOXAPARIN 40 MG/0.4 ML SYRINGE SUBCUT SCH (22:04)
[2019-02-07] MEDS: INSULIN GLARGINE 100 UNIT/ML SUBCUT SCH (22:05)
[2019-02-07] MEDS: FOLIC ACID 1 MG TABLET PO SCH (22:05)
[2019-02-07] MEDS: PIPERACILLIN/TAZOBACTAM 3,375 MG in SODIUM CHLORIDE 0.9% 100 ML IV SCH (22:11)
[2019-02-08] MEDS: VANCOMYCIN INJ 1,000 MG in SODIUM CHLORIDE 0.9% 250 ML IV SCH ×2 (02:37→15:25)
[2019-02-08 04:38] LABS: Basophils # 0.1 10*3/uL (0.0-0.2); Basophils % 0.5 % (0.0-0.8); Eosinophils # 0.3 10*3/uL (0.0-0.87); Eosinophils % 3.4 % (0.00-10.9); Hematocrit 30.9 VOL% (42.0-52.0); Hemoglobin 10.5 GM/DL (14.0-18.0); Immature Granulocytes % 0.7 %; Immature Granulocytes Absolute 0.06 #; Lymphocytes # 1.7 10*3/uL (1.4-4.0); Lymphocytes % 18.2 % (21.2-54.2); Mean Corpuscular Hemoglobin 29 PG (27-34); Mean Corpuscular Volume 85.4 FL (87-102); Mean Platelet Volume 9.3 FL (9.6-12.0); Monocytes # 1.1 10*3/uL (0.11-0.8); Monocytes % 11.6 % (1.7-12.7); Neutrophils % 65.6 % (38.7-73.9); Platelet Count 303 T/CUMM (130-400); Red Blood Count 3.62 MC/CUMM (3.8-5.5); Red Cell Distribution Width 13.3 % (9.3-17.3); White Blood Count 9.1 T/CUMM (4-12)
[2019-02-08 05:29] LABS: Calcium 8.3 MG/DL (8.5-10.1); Osmolality,Calculated 276.7 MOS/KG (273-304); Potassium 3.5 MMOL/L (3.5-5.1)
[2019-02-08] MEDS: PIPERACILLIN/TAZOBACTAM 3,375 MG in SODIUM CHLORIDE 0.9% 100 ML IV SCH ×2 (08:43→17:25)
[2019-02-08] MEDS: INSULIN LISPRO 100 UNIT/ML SUBCUT SCH ×4 (08:44→21:53)
[2019-02-08] MEDS: THIAMINE 100 MG TABLET PO SCH (08:44)
[2019-02-08] MEDS: amLODIPine 10 MG TABLET PO SCH (08:44)
[2019-02-08] MEDS: LORazepam 2 MG/1 ML VIAL IV PRN (19:57)
[2019-02-08] MEDS: INSULIN GLARGINE 100 UNIT/ML SUBCUT SCH (21:52)
[2019-02-08] MEDS: FOLIC ACID 1 MG TABLET PO SCH (21:54)
[2019-02-08] MEDS: ENOXAPARIN 40 MG/0.4 ML SYRINGE SUBCUT SCH (21:54)
[2019-02-09] MEDS: LORazepam 2 MG/1 ML VIAL IV PRN ×2 (00:28→05:02)
[2019-02-09] MEDS: PIPERACILLIN/TAZOBACTAM 3,375 MG in SODIUM CHLORIDE 0.9% 100 ML IV SCH ×3 (00:35→18:21)
[2019-02-09] MEDS: VANCOMYCIN INJ 1,000 MG in SODIUM CHLORIDE 0.9% 250 ML IV SCH ×2 (05:04→16:31)
[2019-02-09] MEDS ORDERED: LIDOCAINE 1% 20 ML VIAL ONE (08:03)
[2019-02-09] MEDS ORDERED: PROPOFOL 200 MG/20 ML VIAL IV ONE (09:03)
[2019-02-09] MEDS ORDERED: MIDAZOLAM 2 MG/2 ML VIAL ONE (09:04)
[2019-02-09] MEDS ORDERED: fentaNYL 100 MCG/2 ML VIAL ONE (09:04)
[2019-02-09] MEDS: amLODIPine 10 MG TABLET PO SCH (10:04)
[2019-02-09] MEDS: THIAMINE 100 MG TABLET PO SCH (10:05)
[2019-02-09] MEDS: INSULIN LISPRO 100 UNIT/ML SUBCUT SCH ×4 (12:40→21:18)
[2019-02-09] MEDS ORDERED: MORPHINE 4 MG/1 ML VIAL IV PRN (20:30)
[2019-02-09] MEDS: INSULIN GLARGINE 100 UNIT/ML SUBCUT SCH (21:18)
[2019-02-09] MEDS: FOLIC ACID 1 MG TABLET PO SCH (21:19)
[2019-02-09] MEDS: ENOXAPARIN 40 MG/0.4 ML SYRINGE SUBCUT SCH (21:19)
[2019-02-10] MEDS: VANCOMYCIN INJ 1,000 MG in SODIUM CHLORIDE 0.9% 250 ML IV SCH ×3 (00:40→18:32)
[2019-02-10] MEDS: PIPERACILLIN/TAZOBACTAM 3,375 MG in SODIUM CHLORIDE 0.9% 100 ML IV SCH ×2 (01:49→11:10)
[2019-02-10] MEDS: THIAMINE 100 MG TABLET PO SCH (09:39)
[2019-02-10] MEDS: INSULIN LISPRO 100 UNIT/ML SUBCUT SCH ×5 (09:48→21:56)
[2019-02-10] MEDS: amLODIPine 10 MG TABLET PO SCH (09:52)
[2019-02-10] MEDS ORDERED: SODIUM HYPOCHLORITE 0.25% IRRIG 473 ML BOTTLE TOP SCH (10:30)
[2019-02-10] MEDS ORDERED: CHLORHEXIDINE 4% SOLN 118 ML BOTTLE TOP SCH (10:30)
[2019-02-10] MEDS ORDERED: INSULIN GLARGINE 100 UNIT/ML SUBCUT SCH (21:00)
[2019-02-10] MEDS: ENOXAPARIN 40 MG/0.4 ML SYRINGE SUBCUT SCH (21:55)
[2019-02-10] MEDS: FOLIC ACID 1 MG TABLET PO SCH (21:55)
[2019-02-11] MEDS: PIPERACILLIN/TAZOBACTAM 3,375 MG in SODIUM CHLORIDE 0.9% 100 ML IV SCH ×3 (00:32→11:11)
[2019-02-11] MEDS: VANCOMYCIN INJ 1,000 MG in SODIUM CHLORIDE 0.9% 250 ML IV SCH (01:15)
[2019-02-11 05:29] LABS: Calcium 8.3 MG/DL (8.5-10.1); Osmolality,Calculated 279.5 MOS/KG (273-304); Potassium 3.4 MMOL/L (3.5-5.1)
[2019-02-11] MEDS: INSULIN LISPRO 100 UNIT/ML SUBCUT SCH ×3 (09:00→12:02)
[2019-02-11] MEDS: amLODIPine 10 MG TABLET PO SCH (09:01)
[2019-02-11] MEDS: THIAMINE 100 MG TABLET PO SCH (11:11)
[2019-02-11 11:35] VITALS: BP 129/69
== END 2019-02-11 14:37 | disposition home or self-care (01) | DRG 617 ==
LOC: N.ED 16:44 → SUATTDRO 18:39 → N.EDINP 18:39 → N.5E 20:11
PROVIDERS: ADMIT Internal Medicine Geriatric Medicine; ATTEND Emergency Medicine

== ENCOUNTER 2019-05-27 12:19 | Inpatient (IN) ==
[2019-05-27] MEDS ORDERED: ONDANSETRON 4 MG/2 ML VIAL IV PRN (13:53)
[2019-05-27] MEDS ORDERED: BISACODYL 5 MG TABLET PO PRN (13:53)
[2019-05-27] MEDS ORDERED: ACETAMINOPHEN 325 MG TABLET PO PRN (13:53)
[2019-05-27] MEDS ORDERED: HYDROmorphone 2 MG/1 ML VIAL IV PRN (13:53)
[2019-05-27] MEDS ORDERED: GLUCAGON 1 MG VIAL IM PRN ×2 (13:57→18:22)
[2019-05-27] MEDS ORDERED: DEXTROSE 50% 25 GM/50 ML VIAL IV PRN ×2 (13:57→18:22)
[2019-05-27] MEDS ORDERED: PIPERACILLIN/TAZOBACTAM 3,375 MG in SODIUM CHLORIDE 0.9% 100 ML IV SCH (14:00)
[2019-05-27 14:17] LABS: Basophils # 0.1 10*3/uL (0.0-0.2); Basophils % 0.6 % (0.0-0.8); Eosinophils # 0.2 10*3/uL (0.0-0.87); Eosinophils % 2.4 % (0.00-10.9); Hematocrit 32.4 VOL% (42.0-52.0); Hemoglobin 10.5 GM/DL (14.0-18.0); Immature Granulocytes % 0.7 %; Immature Granulocytes Absolute 0.06 #; Lymphocytes # 1.3 10*3/uL (1.4-4.0); Lymphocytes % 14.4 % (21.2-54.2); Mean Corpuscular HGB Conc 32.4 GM/DL (32-36); Mean Corpuscular Volume 84.8 FL (87-102); Mean Platelet Volume 9.6 FL (9.6-12.0); Monocytes % 10.5 % (1.7-12.7); Neutrophils % 71.4 % (38.7-73.9); Platelet Count 395 T/CUMM (130-400); Red Blood Count 3.82 MC/CUMM (3.8-5.5); Red Cell Distribution Width 14.6 % (9.3-17.3)
[2019-05-27 14:19] LABS: Alanine Aminotransferase 22 U/L (16-61); Albumin 2.5 G/DL (3.4-5.0); Alkaline Phosphatase 113 U/L (45-117); Aspartate Amino Transferase 15 U/L (0-37); Bilirubin,Total < 0.39 MG/DL (0.2-1.0); Blood Urea Nitrogen 19 MG/DL (7-18); Calcium 8.9 MG/DL (8.5-10.1); Glucose 370 MG/DL (74-106); Osmolality,Calculated 286.1 MOS/KG (273-304); Total Protein 8.7 G/DL (6.4-8.3)
[2019-05-27] MEDS ORDERED: LIDOCAINE 1% 20 ML VIAL ONE (14:49)
[2019-05-27] MEDS ORDERED: ePHEDrine 50 MG/ML AMP ONE (17:00)
[2019-05-27] MEDS ORDERED: fentaNYL 100 MCG/2 ML VIAL ONE (17:00)
[2019-05-27] MEDS ORDERED: SEVOFLURANE 1 UNIT/15 MINUTE INH ONE (17:00)
[2019-05-27] MEDS ORDERED: GLYCOPYRROLATE 0.4 MG/2 ML VIAL ONE (17:00)
[2019-05-27] MEDS ORDERED: PROPOFOL 200 MG/20 ML VIAL IV ONE (17:00)
[2019-05-27] MEDS ORDERED: PHENYLEPHRINE 1 MG/10 ML SYRINGE IV ONE (17:01)
[2019-05-27] MEDS: LACTATED RINGERS 1,000 ML IV SCH ×2 (18:10→22:00)
[2019-05-27] MEDS: FERROUS SULFATE 325 MG TABLET PO SCH ×2 (18:10→21:49)
[2019-05-27] MEDS: INSULIN LISPRO 100 UNIT/ML SUBCUT SCH (18:50)
[2019-05-27] MEDS: PIPERACILLIN/TAZOBACTAM 3,375 MG in SODIUM CHLORIDE 0.9% 100 ML IV SCH (21:41)
[2019-05-28] MEDS: LACTATED RINGERS 1,000 ML IV SCH ×2 (06:00→14:00)
[2019-05-28] MEDS: PIPERACILLIN/TAZOBACTAM 3,375 MG in SODIUM CHLORIDE 0.9% 100 ML IV SCH ×2 (07:00→12:39)
[2019-05-28] MEDS ORDERED: amLODIPine 10 MG TABLET PO SCH (09:00)
[2019-05-28] MEDS ORDERED: PANTOPRAZOLE 40 MG TABLET PO SCH (09:00)
[2019-05-28] MEDS ORDERED: LISINOPRIL 5 MG TABLET PO SCH (09:00)
[2019-05-28] MEDS ORDERED: ASPIRIN EC 81 MG TABLET PO SCH (09:00)
[2019-05-28] MEDS: INSULIN LISPRO 100 UNIT/ML SUBCUT SCH ×2 (09:30→12:34)
[2019-05-28] MEDS: FERROUS SULFATE 325 MG TABLET PO SCH (09:32)
[2019-05-28 12:38] VITALS: BP 113/65
== END 2019-05-28 14:45 | disposition home or self-care (01) | DRG 988 ==
LOC: N.ED 12:19 → N.EDINP 13:53 → N.3E 15:00
PROVIDERS: ADMIT Surgery; ATTEND Surgery

== ENCOUNTER 2019-10-10 11:28 | Inpatient (IN) ==
[2019-10-10] MEDS ORDERED: INFLUENZA VIRUS VACCINE 0.5 ML SYRINGE IM ONE (14:31)
[2019-10-10] MEDS ORDERED: METHYL SALICYLATE 60 ML BOTTLE TOP ONE (14:31)
[2019-10-10] MEDS ORDERED: LACTULOSE 20 GM/30 ML UDCUP PO PRN (15:42)
[2019-10-10] MEDS ORDERED: ONDANSETRON 4 MG/2 ML VIAL IV PRN (15:42)
[2019-10-10] MEDS ORDERED: ACETAMINOPHEN 325 MG TABLET PO PRN (15:42)
[2019-10-10] MEDS ORDERED: DOCUSATE SODIUM 100 MG CAPSULE PO PRN (15:42)
[2019-10-10] MEDS ORDERED: MORPHINE 4 MG/1 ML VIAL IV PRN (15:42)
[2019-10-10] MEDS ORDERED: VANCOMYCIN INJ 1,000 MG in SODIUM CHLORIDE 0.9% 250 ML IV ONE (16:00)
[2019-10-10] MEDS ORDERED: cefTRIAXone 2,000 MG in SYRINGE 1 EACH IV SCH (16:00)
[2019-10-10] MEDS: SODIUM CHLORIDE 0.9% 1,000 ML IV SCH (16:02)
[2019-10-10 16:27] LABS: Basophils # 0.1 10*3/uL (0.0-0.2); Basophils % 0.2 % (0.0-0.8); Hematocrit 30.6 VOL% (42.0-52.0); Hemoglobin 10.3 GM/DL (14.0-18.0); Immature Granulocytes % 1.4 %; Immature Granulocytes Absolute 0.31 #; Lymphocytes # 0.8 10*3/uL (1.4-4.0); Lymphocytes % 3.5 % (21.2-54.2); Mean Corpuscular HGB Conc 33.7 GM/DL (32-36); Mean Corpuscular Volume 84.3 FL (87-102); Mean Platelet Volume 10.3 FL (9.6-12.0); Monocytes % 7.3 % (1.7-12.7); Neutrophils % 87.6 % (38.7-73.9); Platelet Count 410 T/CUMM (130-400); Red Blood Count 3.63 MC/CUMM (3.8-5.5); Red Cell Distribution Width 12.9 % (9.3-17.3)
[2019-10-10 16:39] LABS: PT Patient Result 10.7 SECS (9.6-12.2); Partial Thromboplastin Time 38.6 SECS (20.8-36.0)
[2019-10-10 16:49] LABS: Albumin 1.3 G/DL (3.4-5.0); Bilirubin,Total 0.8 MG/DL (0.2-1.0); Calcium 8.2 MG/DL (8.5-10.1); Osmolality,Calculated 288.5 MOS/KG (273-304); Total Protein 7.3 G/DL (6.4-8.3)
[2019-10-10 16:55] LABS: HDL Cholesterol < 10 MG/DL (40-60); Triglycerides 176 MG/DL (2-150); VLDL CHOLESTEROL 35.2 MG/DL
[2019-10-10] MEDS ORDERED: GLUCAGON 1 MG VIAL IM PRN (17:00)
[2019-10-10] MEDS ORDERED: DEXTROSE 10% 250 ML BAG IV PRN (17:00)
[2019-10-10] MEDS ORDERED: hydrALAZINE 20 MG/1 ML VIAL IV PRN (17:22)
[2019-10-10 18:08] LABS: Band Neutrophils 1 % (0-10); Lymphocytes 3 % (20-55); Platelet Estimate Normal; Segmented Neutrophils 92 % (50-85); Total Cells Counted 100
[2019-10-10 18:20] LABS: Apearance,Urine Slightly Hazy (Clear); Bilirubin,Urine Negative (Negative); Blood, Urine Moderate mg/dL (Negative); Glucose,Urine (UA) >=500 mg/dL (Negative); Ketones,Urine 5 mg/dL (Negative); Nitrite,Urine Negative (Negative); Protein,Urine 100 MG/DL; Squamous Epithelial Cell,Urine Occasional /HPF (0-10); Urine Color Yellow (Yellow); Urine Urobilinogen < 2.0 EU/DL (0.2-1.0)
[2019-10-10] MEDS: PANTOPRAZOLE 40 MG TABLET PO SCH (18:31)
[2019-10-10] MEDS: INSULIN REGULAR 100 UNIT/ML SUBCUT SCH ×2 (18:32→18:36)
[2019-10-10] MEDS: PIPERACILLIN/TAZOBACTAM 3,375 MG in SODIUM CHLORIDE 0.9% 100 ML IV SCH (18:45)
[2019-10-10] MEDS: CYPROHEPTADINE 4 MG TABLET PO SCH (20:48)
[2019-10-10] MEDS: chlordiazePOXIDE 10 MG CAPSULE PO SCH (20:48)
[2019-10-11] MEDS: INSULIN REGULAR 100 UNIT/ML SUBCUT SCH ×4 (01:31→18:42)
[2019-10-11] MEDS: PIPERACILLIN/TAZOBACTAM 3,375 MG in SODIUM CHLORIDE 0.9% 100 ML IV SCH ×3 (03:32→17:49)
[2019-10-11 06:07] LABS: Albumin 1.1 G/DL (3.4-5.0); Bilirubin,Total 1.3 MG/DL (0.2-1.0); Calcium 7.6 MG/DL (8.5-10.1); Osmolality,Calculated 286.4 MOS/KG (273-304); Total Protein 6.2 G/DL (6.4-8.3)
[2019-10-11] MEDS: SODIUM CHLORIDE 0.9% 1,000 ML IV SCH ×2 (06:43→14:31)
[2019-10-11] MEDS: VANCOMYCIN INJ 1,000 MG in SODIUM CHLORIDE 0.9% 250 ML IV SCH ×2 (07:22→22:16)
[2019-10-11] MEDS: ASPIRIN EC 81 MG TABLET PO SCH (09:02)
[2019-10-11] MEDS: PANTOPRAZOLE 40 MG TABLET PO SCH (09:02)
[2019-10-11] MEDS: chlordiazePOXIDE 10 MG CAPSULE PO SCH (09:02)
[2019-10-11] MEDS: CYPROHEPTADINE 4 MG TABLET PO SCH ×2 (09:02→22:15)
[2019-10-11] MEDS: THIAMINE 200 MG/2 ML VIAL IV SCH (09:55)
[2019-10-11] MEDS ORDERED: PHENYLEPHRINE DRIP 20 MG/250 ML PREMIX IV ONE (14:33)
[2019-10-11] MEDS ORDERED: LIDOCAINE 2% 5 ML VIAL ONE (14:33)
[2019-10-11] MEDS ORDERED: GLYCOPYRROLATE 0.4 MG/2 ML VIAL ONE (14:34)
[2019-10-11] MEDS ORDERED: ROCURONIUM 100 MG/10 ML VIAL IV ONE (14:34)
[2019-10-11] MEDS ORDERED: fentaNYL 100 MCG/2 ML VIAL ONE ×2 (14:34)
[2019-10-11] MEDS ORDERED: ETOMIDATE 40 MG/20 ML VIAL IV ONE (14:34)
[2019-10-11] MEDS ORDERED: LACTATED RINGERS 1,000 ML IV ONE (14:34)
[2019-10-11] MEDS ORDERED: NEOSTIGMINE 10 MG/10 ML VIAL ONE (14:34)
[2019-10-11] MEDS ORDERED: DEXTROSE 50% 25 GM/50 ML VIAL IV PRN (15:30)
[2019-10-11] MEDS ORDERED: GLUCAGON 1 MG VIAL IM PRN (15:30)
[2019-10-12] MEDS: SODIUM CHLORIDE 0.9% 1,000 ML IV SCH ×2 (00:26→12:25)
[2019-10-12] MEDS: INSULIN REGULAR 100 UNIT/ML SUBCUT SCH ×5 (01:00→23:44)
[2019-10-12] MEDS: PIPERACILLIN/TAZOBACTAM 3,375 MG in SODIUM CHLORIDE 0.9% 100 ML IV SCH ×3 (01:55→17:44)
[2019-10-12 05:37] LABS: Bilirubin,Total 1.6 MG/DL (0.2-1.0); Calcium 7.2 MG/DL (8.5-10.1); Osmolality,Calculated 291.5 MOS/KG (273-304)
[2019-10-12] MEDS: THIAMINE 200 MG/2 ML VIAL IV SCH (09:04)
[2019-10-12] MEDS: ASPIRIN EC 81 MG TABLET PO SCH (09:05)
[2019-10-12] MEDS: PANTOPRAZOLE 40 MG TABLET PO SCH (09:05)
[2019-10-12] MEDS: CYPROHEPTADINE 4 MG TABLET PO SCH ×2 (09:05→21:17)
[2019-10-12] MEDS ORDERED: BENZOCAINE/MENTHOL LOZENGE 18/BOX PO PRN (10:36)
[2019-10-12] MEDS: VANCOMYCIN INJ 1,000 MG in SODIUM CHLORIDE 0.9% 250 ML IV SCH (10:42)
[2019-10-13] MEDS: PIPERACILLIN/TAZOBACTAM 3,375 MG in SODIUM CHLORIDE 0.9% 100 ML IV SCH ×3 (01:59→18:12)
[2019-10-13] MEDS: SODIUM CHLORIDE 0.9% 1,000 ML IV SCH ×3 (02:00→19:06)
[2019-10-13 05:44] LABS: Basophils % 0.4 % (0.0-0.8); Eosinophils # 0.1 10*3/uL (0.0-0.87); Hematocrit 24.8 VOL% (42.0-52.0); Hemoglobin 8.2 GM/DL (14.0-18.0); Immature Granulocytes % 2.3 %; Immature Granulocytes Absolute 0.18 #; Lymphocytes # 1.3 10*3/uL (1.4-4.0); Lymphocytes % 15.8 % (21.2-54.2); Mean Corpuscular HGB Conc 33.1 GM/DL (32-36); Mean Corpuscular Volume 86.1 FL (87-102); Monocytes % 10.2 % (1.7-12.7); Neutrophils % 70.3 % (38.7-73.9); Platelet Count 266 T/CUMM (130-400); Red Blood Count 2.88 MC/CUMM (3.8-5.5); Red Cell Distribution Width 13.3 % (9.3-17.3)
[2019-10-13] MEDS: INSULIN REGULAR 100 UNIT/ML SUBCUT SCH ×3 (06:02→18:11)
[2019-10-13 07:21] LABS: Band Neutrophils 2 % (0-10); Eosinophils 1 % (0-10); Lymphocytes 11 % (20-55); Nucleated Red Blood Cells 1 (0-5); Segmented Neutrophils 74 % (50-85); Total Cells Counted 100
[2019-10-13 07:22] LABS: Hypochromasia Slight; Microcytosis Slight; Platelet Estimate Normal
[2019-10-13 07:47] LABS: Calcium 6.8 MG/DL (8.5-10.1)
[2019-10-13 07:48] LABS: Albumin 0.9 G/DL (3.4-5.0); Bilirubin,Total 0.43 MG/DL (0.2-1.0); Osmolality,Calculated 281.4 MOS/KG (273-304); Total Protein 5.9 G/DL (6.4-8.3)
[2019-10-13] MEDS: THIAMINE 200 MG/2 ML VIAL IV SCH (09:06)
[2019-10-13] MEDS: ASPIRIN EC 81 MG TABLET PO SCH (09:07)
[2019-10-13] MEDS: FLUCONAZOLE 200 MG TABLET PO SCH (09:07)
[2019-10-13] MEDS: CYPROHEPTADINE 4 MG TABLET PO SCH ×2 (09:07→21:48)
[2019-10-13] MEDS: PANTOPRAZOLE 40 MG TABLET PO SCH (09:07)
[2019-10-13] MEDS ORDERED: TUBERCULIN SKIN TEST 0.1 ML SYRINGE INTRADERM ONE (10:31)
[2019-10-14] MEDS: INSULIN REGULAR 100 UNIT/ML SUBCUT SCH ×4 (01:34→17:47)
[2019-10-14] MEDS: PIPERACILLIN/TAZOBACTAM 3,375 MG in SODIUM CHLORIDE 0.9% 100 ML IV SCH ×3 (01:35→17:47)
[2019-10-14 05:28] LABS: Basophils % 0.5 % (0.0-0.8); Eosinophils # 0.1 10*3/uL (0.0-0.87); Eosinophils % 1.1 % (0.00-10.9); Hematocrit 24.8 VOL% (42.0-52.0); Hemoglobin 8.1 GM/DL (14.0-18.0); Immature Granulocytes % 2.8 %; Immature Granulocytes Absolute 0.17 #; Lymphocytes # 1.1 10*3/uL (1.4-4.0); Lymphocytes % 18.3 % (21.2-54.2); Mean Corpuscular HGB Conc 32.7 GM/DL (32-36); Mean Corpuscular Volume 86.7 FL (87-102); Mean Platelet Volume 9.9 FL (9.6-12.0); Monocytes % 9.6 % (1.7-12.7); Neutrophils % 67.7 % (38.7-73.9); Platelet Count 272 T/CUMM (130-400); Red Blood Count 2.86 MC/CUMM (3.8-5.5); Red Cell Distribution Width 13.2 % (9.3-17.3); White Blood Count 6.1 T/CUMM (4-12)
[2019-10-14 05:50] LABS: Band Neutrophils 1 % (0-10); Lymphocytes 17 % (20-55); Segmented Neutrophils 73 % (50-85); Total Cells Counted 100
[2019-10-14 05:51] LABS: Hypochromasia 1+; Microcytosis Slight; Platelet Estimate Adequate
[2019-10-14 05:52] LABS: Calcium 6.7 MG/DL (8.5-10.1); Osmolality,Calculated 285.1 MOS/KG (273-304)
[2019-10-14] MEDS ORDERED: POTASSIUM CHLORIDE 20 MEQ TABLET PO ONE (08:15)
[2019-10-14] MEDS: CYPROHEPTADINE 4 MG TABLET PO SCH ×2 (09:28→21:56)
[2019-10-14] MEDS: ASPIRIN EC 81 MG TABLET PO SCH (09:28)
[2019-10-14] MEDS: PANTOPRAZOLE 40 MG TABLET PO SCH (09:28)
[2019-10-14] MEDS: FLUCONAZOLE 200 MG TABLET PO SCH (09:28)
[2019-10-14] MEDS: THIAMINE 200 MG/2 ML VIAL IV SCH (09:29)
[2019-10-14] MEDS: SODIUM CHLORIDE 0.9% 1,000 ML IV SCH (18:50)
[2019-10-15] MEDS: INSULIN REGULAR 100 UNIT/ML SUBCUT SCH ×4 (01:53→18:28)
[2019-10-15] MEDS: PIPERACILLIN/TAZOBACTAM 3,375 MG in SODIUM CHLORIDE 0.9% 100 ML IV SCH ×3 (01:54→17:21)
[2019-10-15 05:59] LABS: Calcium 7.2 MG/DL (8.5-10.1); Osmolality,Calculated 278.7 MOS/KG (273-304)
[2019-10-15] MEDS: THIAMINE 200 MG/2 ML VIAL IV SCH (08:56)
[2019-10-15] MEDS: ASPIRIN EC 81 MG TABLET PO SCH (08:57)
[2019-10-15] MEDS: FLUCONAZOLE 200 MG TABLET PO SCH (08:58)
[2019-10-15] MEDS: PANTOPRAZOLE 40 MG TABLET PO SCH (08:58)
[2019-10-15] MEDS: CYPROHEPTADINE 4 MG TABLET PO SCH ×2 (08:58→21:26)
[2019-10-15] MEDS: metFORMIN 500 MG TABLET PO SCH (17:17)
[2019-10-16] MEDS: INSULIN REGULAR 100 UNIT/ML SUBCUT SCH ×3 (01:37→12:22)
[2019-10-16] MEDS: PIPERACILLIN/TAZOBACTAM 3,375 MG in SODIUM CHLORIDE 0.9% 100 ML IV SCH ×2 (01:37→09:22)
[2019-10-16 04:57] LABS: Basophils % 0.4 % (0.0-0.8); Eosinophils # 0.1 10*3/uL (0.0-0.87); Eosinophils % 1.8 % (0.00-10.9); Hematocrit 23.8 VOL% (42.0-52.0); Hemoglobin 7.6 GM/DL (14.0-18.0); Immature Granulocytes % 3.2 %; Immature Granulocytes Absolute 0.18 #; Lymphocytes % 17.9 % (21.2-54.2); Mean Corpuscular HGB Conc 31.9 GM/DL (32-36); Mean Corpuscular Volume 87.2 FL (87-102); Mean Platelet Volume 9.6 FL (9.6-12.0); Neutrophils % 66.7 % (38.7-73.9); Platelet Count 325 T/CUMM (130-400); Red Blood Count 2.73 MC/CUMM (3.8-5.5); Red Cell Distribution Width 13.1 % (9.3-17.3); White Blood Count 5.7 T/CUMM (4-12)
[2019-10-16 05:16] LABS: Calcium 7.4 MG/DL (8.5-10.1); Ferritin 305.2 ng/ml (26-388)
[2019-10-16] MEDS: PANTOPRAZOLE 40 MG TABLET PO SCH (08:39)
[2019-10-16] MEDS: CYPROHEPTADINE 4 MG TABLET PO SCH (08:39)
[2019-10-16] MEDS: ASPIRIN EC 81 MG TABLET PO SCH (08:39)
[2019-10-16] MEDS: FLUCONAZOLE 200 MG TABLET PO SCH (08:40)
[2019-10-16] MEDS: metFORMIN 500 MG TABLET PO SCH ×2 (08:40→16:45)
[2019-10-16] MEDS: THIAMINE 200 MG/2 ML VIAL IV SCH (09:19)
[2019-10-16] MEDS ORDERED: SODIUM CHLORIDE 0.9% 1,000 ML IV PRN (09:32)
[2019-10-16] MEDS ORDERED: BISACODYL 10 MG SUPP RECTAL ONE (12:27)
[2019-10-16 16:17] VITALS: BP 120/74
[2019-10-16 17:13] LABS: Hematocrit 28.1 VOL% (42.0-52.0)
== END 2019-10-16 18:30 | disposition swing bed (61) | DRG 305 ==
LOC: SUATTDRO 13:51 → N.3E 13:51
PROVIDERS: ADMIT Internal Medicine; ATTEND Internal Medicine

== ENCOUNTER 2020-08-02 22:23 | Inpatient (IN) ==
[2020-08-02] MEDS ORDERED: LACTATED RINGERS 1,000 ML IV ONE (22:51)
[2020-08-02] MEDS ORDERED: VANCOMYCIN INJ 1,500 MG in SODIUM CHLORIDE 0.9% 500 ML IV STA (22:58)
[2020-08-02] MEDS ORDERED: CEFEPIME 1,000 MG in SODIUM CHLORIDE 0.9% 100 ML IV STA (22:58)
[2020-08-02 23:27] LABS: Basophils % 0.2 % (0.0-0.8); Eosinophils % 0.1 % (0.00-10.9); Hematocrit 24.5 VOL% (42.0-52.0); Hemoglobin 8.5 GM/DL (14.0-18.0); Immature Granulocytes % 1.4 %; Immature Granulocytes Absolute 0.25 #; Lymphocytes # 1.3 10*3/uL (1.4-4.0); Lymphocytes % 7.4 % (21.2-54.2); Mean Corpuscular HGB Conc 34.7 GM/DL (32-36); Mean Corpuscular Volume 84.2 FL (87-102); Mean Platelet Volume 9.5 FL (9.6-12.0); Monocytes % 7.6 % (1.7-12.7); Neutrophils % 83.3 % (38.7-73.9); Platelet Count 398 T/CUMM (130-400); Red Blood Count 2.91 MC/CUMM (3.8-5.5); Red Cell Distribution Width 12.1 % (9.3-17.3); White Blood Count 17.6 T/CUMM (4-12)
[2020-08-02 23:51] LABS: Albumin 1.2 G/DL (3.4-5.0); Bilirubin,Total 0.7 MG/DL (0.2-1.0); Calcium 8.6 MG/DL (8.5-10.1); Osmolality,Calculated 278.9 MOS/KG (273-304); Total Protein 7.9 G/DL (6.4-8.3)
[2020-08-03] MEDS ORDERED: POTASSIUM CHLORIDE RIDER 20 MEQ in PREMIX 1 EACH IV STA ×2 (00:04→00:08)
[2020-08-03] MEDS ORDERED: POTASSIUM CHLORIDE 20 MEQ TABLET PO ONE ×2 (00:04→10:14)
[2020-08-03 00:30] LABS: Sedimentation Rate-Westergren 129 MM/HR (0-20)
[2020-08-03] MEDS ORDERED: NICOTINE 21 MG/24 HR PATCH TRANSDERM PRN (01:07)
[2020-08-03] MEDS ORDERED: diphenhydrAMINE CAP 25 MG CAPSULE PO PRN (01:07)
[2020-08-03] MEDS ORDERED: MORPHINE 4 MG/1 ML VIAL IV PRN (01:07)
[2020-08-03] MEDS ORDERED: GLUCAGON 1 MG VIAL IM PRN (01:07)
[2020-08-03] MEDS ORDERED: hydrALAZINE 20 MG/1 ML VIAL IV PRN (01:07)
[2020-08-03] MEDS ORDERED: DEXTROSE 50% 25 GM/50 ML VIAL IV PRN (01:07)
[2020-08-03] MEDS ORDERED: ONDANSETRON 4 MG/2 ML VIAL IV PRN (01:07)
[2020-08-03] MEDS ORDERED: DEXTROSE 50% 25 GM/50 ML SYRINGE IV PRN (01:23)
[2020-08-03] MEDS: SODIUM CHLORIDE 0.9% 1,000 ML IV SCH ×3 (03:20→22:11)
[2020-08-03] MEDS: CEFEPIME 1,000 MG in SODIUM CHLORIDE 0.9% 100 ML IV SCH ×4 (05:58→23:16)
[2020-08-03] MEDS ORDERED: INFLUENZA VIRUS VACCINE 0.5 ML SYRINGE IM ONE (06:18)
[2020-08-03] MEDS: INSULIN REGULAR 100 UNIT/ML SUBCUT SCH ×5 (07:52→20:58)
[2020-08-03 09:05] LABS: Basophils % 0.2 % (0.0-0.8); Eosinophils % 0.1 % (0.00-10.9); Hematocrit 21.6 VOL% (42.0-52.0); Hemoglobin 7.4 GM/DL (14.0-18.0); Immature Granulocytes % 2.2 %; Immature Granulocytes Absolute 0.35 #; Lymphocytes # 1.1 10*3/uL (1.4-4.0); Lymphocytes % 7.1 % (21.2-54.2); Mean Corpuscular HGB Conc 34.3 GM/DL (32-36); Mean Platelet Volume 9.6 FL (9.6-12.0); Monocytes % 7.1 % (1.7-12.7); Neutrophils % 83.3 % (38.7-73.9); Platelet Count 381 T/CUMM (130-400); Red Blood Count 2.57 MC/CUMM (3.8-5.5); Red Cell Distribution Width 12.2 % (9.3-17.3); White Blood Count 15.9 T/CUMM (4-12)
[2020-08-03 09:26] LABS: Hypochromasia 2+; Lymphocytes 4 % (20-55); Microcytosis 1+; Platelet Estimate Adequate; Segmented Neutrophils 89 % (50-85); Total Cells Counted 100
[2020-08-03 09:42] LABS: Calcium 8.4 MG/DL (8.5-10.1); Osmolality,Calculated 279.4 MOS/KG (273-304)
[2020-08-03] MEDS: INSULIN GLARGINE 100 UNIT/ML SUBCUT SCH (09:59)
[2020-08-03] MEDS ORDERED: MAGNESIUM SULF RIDER 4 GM in PREMIX 1 EACH IV PRN (10:12)
[2020-08-03] MEDS: POTASSIUM CHLORIDE 20 MEQ TABLET PO PRN ×6 (10:14→23:16)
[2020-08-03] MEDS: MAGNESIUM SULF RIDER 2 GM in PREMIX 1 EACH IV PRN (10:43)
[2020-08-03] MEDS: SODIUM HYPOCHLORITE 0.25% IRRIG 473 ML BOTTLE TOP SCH (12:26)
[2020-08-03] MEDS: VANCOMYCIN INJ 1,250 MG in SODIUM CHLORIDE 0.9% 250 ML IV SCH (15:20)
[2020-08-03] MEDS: ACETAMINOPHEN 325 MG TABLET PO PRN (18:00)
[2020-08-03] MEDS ORDERED: LOPERAMIDE 2 MG CAPSULE PO PRN (18:12)
[2020-08-04] MEDS: VANCOMYCIN INJ 1,250 MG in SODIUM CHLORIDE 0.9% 250 ML IV SCH ×2 (02:10→18:32)
[2020-08-04] MEDS: ACETAMINOPHEN 325 MG TABLET PO PRN ×2 (03:37→17:59)
[2020-08-04 05:41] LABS: Basophils % 0.3 % (0.0-0.8); Eosinophils % 0.2 % (0.00-10.9); Hemoglobin 7.2 GM/DL (14.0-18.0); Immature Granulocytes Absolute 0.16 #; Lymphocytes % 6.5 % (21.2-54.2); Mean Corpuscular HGB Conc 34.3 GM/DL (32-36); Mean Corpuscular Volume 84.7 FL (87-102); Mean Platelet Volume 9.7 FL (9.6-12.0); Monocytes % 5.4 % (1.7-12.7); Neutrophils % 86.6 % (38.7-73.9); Platelet Count 353 T/CUMM (130-400); Red Blood Count 2.48 MC/CUMM (3.8-5.5); Red Cell Distribution Width 12.1 % (9.3-17.3); White Blood Count 15.6 T/CUMM (4-12)
[2020-08-04 06:02] LABS: Lymphocytes 6 % (20-55); Platelet Estimate Adequate; Segmented Neutrophils 90 % (50-85); Total Cells Counted 100
[2020-08-04 06:03] LABS: Burr Cells Slight; Hypochromasia 2+; Microcytosis Slight; Ovalocytes Slight
[2020-08-04 07:01] LABS: Calcium 7.7 MG/DL (8.5-10.1); Osmolality,Calculated 270.1 MOS/KG (273-304)
[2020-08-04] MEDS: CEFEPIME 1,000 MG in SODIUM CHLORIDE 0.9% 100 ML IV SCH ×3 (08:10→20:00)
[2020-08-04] MEDS: INSULIN REGULAR 100 UNIT/ML SUBCUT SCH ×4 (08:12→22:45)
[2020-08-04] MEDS ORDERED: LIDOCAINE 1% 20 ML VIAL ONE (08:20)
[2020-08-04] MEDS: INSULIN GLARGINE 100 UNIT/ML SUBCUT SCH (09:00)
[2020-08-04] MEDS: SODIUM HYPOCHLORITE 0.25% IRRIG 473 ML BOTTLE TOP SCH (09:00)
[2020-08-04] MEDS ORDERED: MIDAZOLAM 2 MG/2 ML VIAL ONE (09:11)
[2020-08-04] MEDS ORDERED: KETAMINE 500 MG/10 ML VIAL ONE (09:11)
[2020-08-04] MEDS ORDERED: fentaNYL 100 MCG/2 ML VIAL ONE (09:11)
[2020-08-04] MEDS ORDERED: propofoL 200 MG/20 ML VIAL IV ONE (09:11)
[2020-08-04] MEDS ORDERED: GLUCAGON 1 MG VIAL IM PRN (10:02)
[2020-08-04] MEDS ORDERED: DEXTROSE 50% 25 GM/50 ML VIAL IV PRN (10:02)
[2020-08-04 11:55] LABS: Hematocrit 22.9 VOL% (42.0-52.0); Hemoglobin 7.7 GM/DL (14.0-18.0)
[2020-08-04] MEDS ORDERED: SODIUM CHLORIDE 0.9% 1,000 ML IV PRN (11:58)
[2020-08-04 12:18] LABS: Calcium 7.8 MG/DL (8.5-10.1); Osmolality,Calculated 271.1 MOS/KG (273-304)
[2020-08-04] MEDS ORDERED: POTASSIUM CHLORIDE 20 MEQ TABLET PO ONE ×2 (16:05→21:00)
[2020-08-04] MEDS ORDERED: MAGNESIUM OXIDE 400 MG TABLET PO ONE ×2 (16:05→21:00)
[2020-08-04] MEDS ORDERED: MAGNESIUM SULF RIDER 4 GM in PREMIX 1 EACH IV ONE (18:21)
[2020-08-04] MEDS: SODIUM CHLORIDE 0.9% 1,000 ML IV SCH (23:47)
[2020-08-05] MEDS: CEFEPIME 1,000 MG in SODIUM CHLORIDE 0.9% 100 ML IV SCH ×4 (05:53→21:45)
[2020-08-05 06:35] LABS: Basophils # 0.1 10*3/uL (0.0-0.2); Basophils % 0.3 % (0.0-0.8); Eosinophils # 0.1 10*3/uL (0.0-0.87); Eosinophils % 0.5 % (0.00-10.9); Hematocrit 28.2 VOL% (42.0-52.0); Immature Granulocytes % 1.4 %; Immature Granulocytes Absolute 0.29 #; Lymphocytes # 1.5 10*3/uL (1.4-4.0); Lymphocytes % 7.5 % (21.2-54.2); Mean Corpuscular Volume 85.5 FL (87-102); Mean Platelet Volume 9.9 FL (9.6-12.0); Monocytes % 5.8 % (1.7-12.7); Neutrophils % 84.5 % (38.7-73.9); Platelet Count 374 T/CUMM (130-400); Red Cell Distribution Width 12.8 % (9.3-17.3)
[2020-08-05 06:50] LABS: Hemoglobin 9.6 GM/DL (14.0-18.0); White Blood Count 20.4 T/CUMM (4-12)
[2020-08-05 06:53] LABS: Calcium 7.4 MG/DL (8.5-10.1); Osmolality,Calculated 267.2 MOS/KG (273-304)
[2020-08-05 06:57] LABS: Band Neutrophils 2 % (0-10); Hypochromasia 1+; Lymphocytes 4 % (20-55); Microcytosis 1+; Platelet Estimate Adequate; Segmented Neutrophils 89 % (50-85); Total Cells Counted 100
[2020-08-05] MEDS: SODIUM CHLORIDE 0.9% 1,000 ML IV SCH ×3 (07:00→23:00)
[2020-08-05] MEDS: INSULIN REGULAR 100 UNIT/ML SUBCUT SCH ×4 (07:19→21:42)
[2020-08-05] MEDS: INSULIN GLARGINE 100 UNIT/ML SUBCUT SCH (09:00)
[2020-08-05] MEDS: SODIUM HYPOCHLORITE 0.25% IRRIG 473 ML BOTTLE TOP SCH (09:00)
[2020-08-05] MEDS: POTASSIUM CHLORIDE 20 MEQ TABLET PO PRN ×2 (10:49→17:37)
[2020-08-05] MEDS: VANCOMYCIN INJ 1,250 MG in SODIUM CHLORIDE 0.9% 250 ML IV SCH (11:52)
[2020-08-05] MEDS ORDERED: SUGAMMADEX 200 MG/2 ML VIAL IV ONE (14:18)
[2020-08-05] MEDS ORDERED: HYDROmorphone 2 MG/1 ML VIAL ONE (14:25)
[2020-08-05] MEDS ORDERED: ONDANSETRON 4 MG/2 ML VIAL ONE (14:41)
[2020-08-05] MEDS ORDERED: PHENYLEPHRINE 10 MG/1 ML VIAL IV ONE (14:41)
[2020-08-05] MEDS ORDERED: SEVOFLURANE 1 UNIT/15 MINUTE INH ONE (14:41)
[2020-08-05] MEDS ORDERED: LIDOCAINE 2% 5 ML VIAL ONE (14:41)
[2020-08-05] MEDS ORDERED: fentaNYL 100 MCG/2 ML VIAL ONE (14:41)
[2020-08-05] MEDS ORDERED: ETOMIDATE 40 MG/20 ML VIAL IV ONE (14:41)
[2020-08-05] MEDS ORDERED: MIDAZOLAM 2 MG/2 ML VIAL ONE (14:41)
[2020-08-05] MEDS ORDERED: ROCURONIUM 100 MG/10 ML VIAL IV ONE (14:42)
[2020-08-05] MEDS ORDERED: DEXTROSE 50% 25 GM/50 ML VIAL IV PRN (16:38)
[2020-08-05] MEDS ORDERED: GLUCAGON 1 MG VIAL IM PRN (16:38)
[2020-08-05] MEDS ORDERED: POTASSIUM CHLORIDE 20 MEQ TABLET PO ONE (21:00)
[2020-08-06] MEDS: CEFEPIME 1,000 MG in SODIUM CHLORIDE 0.9% 100 ML IV SCH ×4 (02:40→21:18)
[2020-08-06] MEDS: SODIUM CHLORIDE 0.9% 1,000 ML IV SCH ×4 (03:41→23:11)
[2020-08-06] MEDS: VANCOMYCIN INJ 1,250 MG in SODIUM CHLORIDE 0.9% 250 ML IV SCH ×2 (03:41→12:01)
[2020-08-06 05:57] LABS: Basophils # 0.1 10*3/uL (0.0-0.2); Basophils % 0.4 % (0.0-0.8); Eosinophils # 0.1 10*3/uL (0.0-0.87); Eosinophils % 0.8 % (0.00-10.9); Hematocrit 24.9 VOL% (42.0-52.0); Hemoglobin 8.3 GM/DL (14.0-18.0); Immature Granulocytes % 1.4 %; Immature Granulocytes Absolute 0.19 #; Lymphocytes # 1.5 10*3/uL (1.4-4.0); Lymphocytes % 11.6 % (21.2-54.2); Mean Corpuscular HGB Conc 33.3 GM/DL (32-36); Mean Corpuscular Volume 87.1 FL (87-102); Mean Platelet Volume 9.8 FL (9.6-12.0); Monocytes % 6.4 % (1.7-12.7); Neutrophils % 79.4 % (38.7-73.9); Platelet Count 358 T/CUMM (130-400); Red Blood Count 2.86 MC/CUMM (3.8-5.5); Red Cell Distribution Width 12.8 % (9.3-17.3); White Blood Count 13.2 T/CUMM (4-12)
[2020-08-06 06:20] LABS: Lymphocytes 9 % (20-55); Segmented Neutrophils 87 % (50-85); Total Cells Counted 100
[2020-08-06 06:21] LABS: Burr Cells Slight; Hypochromasia 1+; Microcytosis 1+; Ovalocytes Slight; Platelet Estimate Adequate
[2020-08-06 06:27] LABS: Calcium 7.1 MG/DL (8.5-10.1)
[2020-08-06] MEDS: INSULIN GLARGINE 100 UNIT/ML SUBCUT SCH (08:41)
[2020-08-06] MEDS: INSULIN REGULAR 100 UNIT/ML SUBCUT SCH ×4 (08:42→21:21)
[2020-08-06] MEDS ORDERED: POTASSIUM CHLORIDE 20 MEQ TABLET PO ONE (09:00)
[2020-08-06] MEDS: SODIUM HYPOCHLORITE 0.25% IRRIG 473 ML BOTTLE TOP SCH (09:11)
[2020-08-06 10:48] LABS: Bilirubin,Urine Negative (Negative); Blood, Urine Moderate mg/dL (Negative); Glucose,Urine (UA) 150 mg/dL (Negative); Ketones,Urine 5 mg/dL (Negative); Mucus,Urine Occasional /LPF (Occasional); Nitrite,Urine Negative (Negative); Protein,Urine 30 MG/DL; RBC,Urine 1 /HPF (0-4); Squamous Epithelial Cell,Urine Occasional /HPF (0-10); Urine Appearance CLEAR (Clear); Urine Color Yellow (Yellow); Urine Specific Gravity 1.012 (1.001-1.035); Urine Urobilinogen < 2.0 EU/DL (0.2-1.0); WBC,Urine 1 /HPF (0-6)
[2020-08-07] MEDS: CEFEPIME 1,000 MG in SODIUM CHLORIDE 0.9% 100 ML IV SCH ×4 (01:31→20:59)
[2020-08-07 06:12] LABS: Calcium 6.6 MG/DL (8.5-10.1); Osmolality,Calculated 270.1 MOS/KG (273-304)
[2020-08-07 06:28] LABS: Basophils % 0.3 % (0.0-0.8); Eosinophils # 0.1 10*3/uL (0.0-0.87); Eosinophils % 0.9 % (0.00-10.9); Hematocrit 25.7 VOL% (42.0-52.0); Hemoglobin 8.5 GM/DL (14.0-18.0); Immature Granulocytes % 1.6 %; Immature Granulocytes Absolute 0.16 #; Lymphocytes # 1.5 10*3/uL (1.4-4.0); Lymphocytes % 14.7 % (21.2-54.2); Mean Corpuscular HGB Conc 33.1 GM/DL (32-36); Mean Corpuscular Volume 86.5 FL (87-102); Mean Platelet Volume 9.5 FL (9.6-12.0); Monocytes % 7.9 % (1.7-12.7); Neutrophils % 74.6 % (38.7-73.9); Platelet Count 413 T/CUMM (130-400); Red Blood Count 2.97 MC/CUMM (3.8-5.5); Red Cell Distribution Width 12.9 % (9.3-17.3); White Blood Count 10.3 T/CUMM (4-12)
[2020-08-07] MEDS: SODIUM CHLORIDE 0.9% 1,000 ML IV SCH ×3 (09:00→23:39)
[2020-08-07] MEDS: INSULIN REGULAR 100 UNIT/ML SUBCUT SCH ×4 (09:05→21:00)
[2020-08-07 10:08] LABS: Burr Cells Few; Hypochromasia 3+; Ovalocytes Few; Polychromasia Slight
[2020-08-07 10:09] LABS: Atypical Lymphocytes Few; Platelet Estimate Increased; Schistocytes Few
[2020-08-07] MEDS: INSULIN GLARGINE 100 UNIT/ML SUBCUT SCH (11:10)
[2020-08-07] MEDS: MAGNESIUM SULF RIDER 2 GM in PREMIX 1 EACH IV PRN (11:19)
[2020-08-07] MEDS: SODIUM HYPOCHLORITE 0.25% IRRIG 473 ML BOTTLE TOP SCH (13:00)
[2020-08-07] MEDS: VANCOMYCIN INJ 1,250 MG in SODIUM CHLORIDE 0.9% 250 ML IV SCH (14:57)
[2020-08-08] MEDS: CEFEPIME 1,000 MG in SODIUM CHLORIDE 0.9% 100 ML IV SCH ×4 (01:43→20:50)
[2020-08-08] MEDS: SODIUM CHLORIDE 0.9% 1,000 ML IV SCH ×3 (06:29→18:13)
[2020-08-08 06:59] LABS: Basophils % 0.4 % (0.0-0.8); Eosinophils # 0.2 10*3/uL (0.0-0.87); Eosinophils % 1.7 % (0.00-10.9); Hematocrit 24.3 VOL% (42.0-52.0); Hemoglobin 8.1 GM/DL (14.0-18.0); Immature Granulocytes % 1.8 %; Lymphocytes # 1.5 10*3/uL (1.4-4.0); Lymphocytes % 13.4 % (21.2-54.2); Mean Corpuscular HGB Conc 33.3 GM/DL (32-36); Mean Corpuscular Volume 86.8 FL (87-102); Mean Platelet Volume 9.1 FL (9.6-12.0); Monocytes % 10.3 % (1.7-12.7); Neutrophils % 72.4 % (38.7-73.9); Platelet Count 454 T/CUMM (130-400); Red Cell Distribution Width 12.9 % (9.3-17.3); White Blood Count 11.2 T/CUMM (4-12)
[2020-08-08] MEDS: INSULIN REGULAR 100 UNIT/ML SUBCUT SCH ×4 (07:13→20:50)
[2020-08-08 07:20] LABS: Calcium 6.7 MG/DL (8.5-10.1); Osmolality,Calculated 270.8 MOS/KG (273-304)
[2020-08-08] MEDS: INSULIN GLARGINE 100 UNIT/ML SUBCUT SCH (08:58)
[2020-08-08] MEDS: SODIUM HYPOCHLORITE 0.25% IRRIG 473 ML BOTTLE TOP SCH (08:59)
[2020-08-08 12:43] LABS: Eosinophils 1 % (0-10); Lymphocytes 10 % (20-55); Segmented Neutrophils 84 % (50-85); Total Cells Counted 100
[2020-08-08 12:44] LABS: Platelet Estimate Adequate
[2020-08-08] MEDS: VANCOMYCIN INJ 1,250 MG in SODIUM CHLORIDE 0.9% 250 ML IV SCH (15:02)
[2020-08-09] MEDS: CEFEPIME 1,000 MG in SODIUM CHLORIDE 0.9% 100 ML IV SCH ×4 (01:43→22:40)
[2020-08-09] MEDS: SODIUM CHLORIDE 0.9% 1,000 ML IV SCH ×2 (04:37→19:01)
[2020-08-09 07:16] LABS: Basophils # 0.1 10*3/uL (0.0-0.2); Basophils % 0.5 % (0.0-0.8); Eosinophils # 0.1 10*3/uL (0.0-0.87); Eosinophils % 0.8 % (0.00-10.9); Hematocrit 24.9 VOL% (42.0-52.0); Hemoglobin 8.2 GM/DL (14.0-18.0); Immature Granulocytes % 2.3 %; Immature Granulocytes Absolute 0.23 #; Lymphocytes # 1.3 10*3/uL (1.4-4.0); Lymphocytes % 13.1 % (21.2-54.2); Mean Corpuscular HGB Conc 32.9 GM/DL (32-36); Mean Corpuscular Volume 88.6 FL (87-102); Mean Platelet Volume 8.9 FL (9.6-12.0); Monocytes % 9.5 % (1.7-12.7); Neutrophils % 73.8 % (38.7-73.9); Platelet Count 501 T/CUMM (130-400); Red Blood Count 2.81 MC/CUMM (3.8-5.5); Red Cell Distribution Width 12.9 % (9.3-17.3); White Blood Count 10.1 T/CUMM (4-12)
[2020-08-09 07:20] LABS: Calcium 7.2 MG/DL (8.5-10.1); Osmolality,Calculated 273.5 MOS/KG (273-304)
[2020-08-09] MEDS: INSULIN REGULAR 100 UNIT/ML SUBCUT SCH ×4 (08:14→22:39)
[2020-08-09] MEDS ORDERED: POTASSIUM CHLORIDE 20 MEQ TABLET PO ONE (09:09)
[2020-08-09] MEDS: INSULIN GLARGINE 100 UNIT/ML SUBCUT SCH (09:40)
[2020-08-09] MEDS: SODIUM HYPOCHLORITE 0.25% IRRIG 473 ML BOTTLE TOP SCH (09:41)
[2020-08-09] MEDS: ENOXAPARIN 40 MG/0.4 ML SYRINGE SUBCUT SCH (12:34)
[2020-08-09] MEDS: VANCOMYCIN INJ 1,250 MG in SODIUM CHLORIDE 0.9% 250 ML IV SCH (15:24)
[2020-08-09] MEDS: ACETAMINOPHEN 325 MG TABLET PO PRN ×2 (16:38→22:41)
[2020-08-10 04:31] LABS: Basophils # 0.1 10*3/uL (0.0-0.2); Basophils % 0.5 % (0.0-0.8); Eosinophils # 0.1 10*3/uL (0.0-0.87); Eosinophils % 0.6 % (0.00-10.9); Hematocrit 22.7 VOL% (42.0-52.0); Hemoglobin 7.4 GM/DL (14.0-18.0); Immature Granulocytes % 1.6 %; Immature Granulocytes Absolute 0.16 #; Lymphocytes # 1.4 10*3/uL (1.4-4.0); Lymphocytes % 13.9 % (21.2-54.2); Mean Corpuscular HGB Conc 32.6 GM/DL (32-36); Mean Corpuscular Volume 88.3 FL (87-102); Mean Platelet Volume 8.9 FL (9.6-12.0); Monocytes % 9.9 % (1.7-12.7); Neutrophils % 73.5 % (38.7-73.9); Platelet Count 537 T/CUMM (130-400); Red Blood Count 2.57 MC/CUMM (3.8-5.5); Red Cell Distribution Width 13.1 % (9.3-17.3); White Blood Count 9.7 T/CUMM (4-12)
[2020-08-10] MEDS: CEFEPIME 1,000 MG in SODIUM CHLORIDE 0.9% 100 ML IV SCH ×4 (05:23→23:07)
[2020-08-10] MEDS: INSULIN REGULAR 100 UNIT/ML SUBCUT SCH ×4 (07:33→21:25)
[2020-08-10] MEDS: INSULIN GLARGINE 100 UNIT/ML SUBCUT SCH (09:24)
[2020-08-10] MEDS: SODIUM CHLORIDE 0.9% 1,000 ML IV SCH ×2 (09:25→23:08)
[2020-08-10] MEDS: SODIUM HYPOCHLORITE 0.25% IRRIG 473 ML BOTTLE TOP SCH (09:56)
[2020-08-10] MEDS ORDERED: fentaNYL 100 MCG/2 ML VIAL ONE (11:33)
[2020-08-10] MEDS ORDERED: MIDAZOLAM 2 MG/2 ML VIAL ONE (11:33)
[2020-08-10] MEDS ORDERED: LIDOCAINE 2% 5 ML VIAL ONE (11:33)
[2020-08-10] MEDS ORDERED: propofoL 200 MG/20 ML VIAL IV ONE (11:33)
[2020-08-10] MEDS ORDERED: ONDANSETRON 4 MG/2 ML VIAL ONE (11:34)
[2020-08-10] MEDS ORDERED: SODIUM CHLORIDE 0.9% 100 ML IV ONE (11:34)
[2020-08-10] MEDS ORDERED: ETOMIDATE 40 MG/20 ML VIAL IV ONE (11:34)
[2020-08-10] MEDS: ENOXAPARIN 40 MG/0.4 ML SYRINGE SUBCUT SCH (14:26)
[2020-08-10] MEDS: POTASSIUM CHLORIDE 20 MEQ TABLET PO PRN (15:05)
[2020-08-10] MEDS: VANCOMYCIN INJ 1,250 MG in SODIUM CHLORIDE 0.9% 250 ML IV SCH (15:05)
[2020-08-11 04:30] LABS: Basophils % 0.3 % (0.0-0.8); Hemoglobin 7.9 GM/DL (14.0-18.0); Immature Granulocytes % 1.3 %; Immature Granulocytes Absolute 0.17 #; Lymphocytes # 1.4 10*3/uL (1.4-4.0); Lymphocytes % 11.3 % (21.2-54.2); Mean Corpuscular HGB Conc 32.9 GM/DL (32-36); Mean Corpuscular Volume 85.1 FL (87-102); Mean Platelet Volume 8.6 FL (9.6-12.0); Monocytes % 9.1 % (1.7-12.7); Platelet Count 555 T/CUMM (130-400); Red Blood Count 2.82 MC/CUMM (3.8-5.5); Red Cell Distribution Width 12.8 % (9.3-17.3); White Blood Count 12.6 T/CUMM (4-12)
[2020-08-11 04:56] LABS: Albumin 0.8 G/DL (3.4-5.0); Bilirubin,Total 0.5 MG/DL (0.2-1.0); Calcium 7.6 MG/DL (8.5-10.1); Osmolality,Calculated 263.4 MOS/KG (273-304)
[2020-08-11 05:00] LABS: Eosinophils 2 % (0-10); Hypochromasia 1+; Lymphocytes 9 % (20-55); Microcytosis 1+; Ovalocytes Slight; Platelet Estimate Adequate; Segmented Neutrophils 81 % (50-85); Total Cells Counted 100
[2020-08-11] MEDS: CEFEPIME 1,000 MG in SODIUM CHLORIDE 0.9% 100 ML IV SCH ×4 (06:05→23:54)
[2020-08-11] MEDS ORDERED: MORPHINE 4 MG/1 ML VIAL IV ONE (07:58)
[2020-08-11] MEDS: INSULIN REGULAR 100 UNIT/ML SUBCUT SCH ×4 (08:50→20:42)
[2020-08-11] MEDS: INSULIN GLARGINE 100 UNIT/ML SUBCUT SCH (09:38)
[2020-08-11] MEDS: SODIUM HYPOCHLORITE 0.25% IRRIG 473 ML BOTTLE TOP SCH (09:39)
[2020-08-11] MEDS: SODIUM CHLORIDE 0.9% 1,000 ML IV SCH (17:29)
[2020-08-11] MEDS: VANCOMYCIN INJ 1,250 MG in SODIUM CHLORIDE 0.9% 250 ML IV SCH (17:30)
[2020-08-11] MEDS: POTASSIUM CHLORIDE 20 MEQ TABLET PO PRN ×2 (20:41→22:45)
[2020-08-12] MEDS: CEFEPIME 1,000 MG in SODIUM CHLORIDE 0.9% 100 ML IV SCH ×2 (04:55→14:05)
[2020-08-12 05:39] LABS: Basophils % 0.4 % (0.0-0.8); Eosinophils # 0.1 10*3/uL (0.0-0.87); Hematocrit 22.4 VOL% (42.0-52.0); Hemoglobin 7.4 GM/DL (14.0-18.0); Immature Granulocytes % 1.3 %; Immature Granulocytes Absolute 0.11 #; Lymphocytes # 1.1 10*3/uL (1.4-4.0); Lymphocytes % 13.3 % (21.2-54.2); Mean Corpuscular Volume 87.5 FL (87-102); Mean Platelet Volume 8.7 FL (9.6-12.0); Monocytes % 7.7 % (1.7-12.7); Neutrophils % 76.3 % (38.7-73.9); Platelet Count 588 T/CUMM (130-400); Red Blood Count 2.56 MC/CUMM (3.8-5.5); Red Cell Distribution Width 12.9 % (9.3-17.3); White Blood Count 8.4 T/CUMM (4-12)
[2020-08-12 05:48] LABS: Calcium 7.5 MG/DL (8.5-10.1)
[2020-08-12] MEDS: MAGNESIUM SULF RIDER 2 GM in PREMIX 1 EACH IV PRN (07:33)
[2020-08-12] MEDS ORDERED: SODIUM CHLORIDE 0.9% 1,000 ML IV PRN (07:36)
[2020-08-12] MEDS: INSULIN REGULAR 100 UNIT/ML SUBCUT SCH ×2 (07:42→13:43)
[2020-08-12] MEDS ORDERED: MAGNESIUM CHLORIDE 64 MG TABLET PO SCH (09:00)
[2020-08-12] MEDS: INSULIN GLARGINE 100 UNIT/ML SUBCUT SCH (10:05)
[2020-08-12] MEDS ORDERED: propofoL 200 MG/20 ML VIAL IV ONE (11:03)
[2020-08-12] MEDS ORDERED: fentaNYL 100 MCG/2 ML VIAL ONE (11:04)
[2020-08-12] MEDS ORDERED: LIDOCAINE 2% 5 ML VIAL ONE (11:04)
[2020-08-12] MEDS ORDERED: ETOMIDATE 40 MG/20 ML VIAL IV ONE (11:04)
[2020-08-12] MEDS ORDERED: ACETAMINOPHEN 1,000 MG/100 ML VIAL IV ONE (11:04)
[2020-08-12] MEDS ORDERED: SODIUM CHLORIDE 0.9% 100 ML IV ONE (11:04)
[2020-08-12] MEDS ORDERED: MIDAZOLAM 2 MG/2 ML VIAL ONE (11:05)
[2020-08-12] MEDS ORDERED: HYDROmorphone 2 MG/1 ML VIAL ONE (11:12)
[2020-08-12] MEDS ORDERED: ONDANSETRON 4 MG/2 ML VIAL IV PRN (11:13)
[2020-08-12] MEDS ORDERED: HYDROmorphone 2 MG/1 ML VIAL IV PRN (11:13)
[2020-08-12] MEDS: SODIUM HYPOCHLORITE 0.25% IRRIG 473 ML BOTTLE TOP SCH (11:55)
[2020-08-12 13:27] LABS: Hematocrit 35.7 VOL% (42.0-52.0)
[2020-08-12 13:36] LABS: Hemoglobin 11.6 GM/DL (14.0-18.0)
[2020-08-12] MEDS: SODIUM CHLORIDE 0.9% 1,000 ML IV SCH (14:30)
[2020-08-12] MEDS: VANCOMYCIN INJ 1,250 MG in SODIUM CHLORIDE 0.9% 250 ML IV SCH (15:29)
[2020-08-12 16:01] VITALS: BP 157/77
== END 2020-08-12 16:51 | DRG 710 ==
LOC: EDUNIT# → EDBD → N.EDINP 22:23 → N.ED 22:23 → SUATTDRO 08-03 01:07 → N.3E 08-03 02:43 → SUATTDRO 08-04 14:12
PROVIDERS: ADMIT Internal Medicine; ATTEND Internal Medicine